=== PATIENT | female | born 1950 | race Caucasian/White ===

== ENCOUNTER 2018-04-20 19:05 | Inpatient (IN) | payer MEDICARE ==
[~2018-04-20 19:05] MED LIST: ISOVUE-370 76%-LOCM 1 ML ONE
[2018-04-20] MEDS ORDERED: Ondansetron HCl/PF 4 MG/2 ML Vial ONE (20:00)
[2018-04-20 20:08] LABS: Troponin I 0.027 ng/mL (< 0.028)
--- NOTE | 2018-04-20 21:28 | CT ---
CT ANGIOGRAM OF THE CHEST 04/20/18 HISTORY: Elevated troponin. Headache, Vision changes. Congestive heart failure. Lung problems. Patient requires oxygen. COMPARISON: None. TECHNIQUE: CT angiogram of the chest is performed in the axial plane. Three dimensional reformatted images are s ubmitted for interpretation. FINDINGS: Nonspecific, nonenlarged mediastinal lymph nodes. Small amount of pericardial fluid. Heart is enlarge d. The thoracic aorta and upper abdominal aorta have an overall normal caliber. No periaortic fat str anding. The visualized upper solid organs do not demonstrate an acute abnormality. There is evidence of hepatosplenomegaly. Surgically absent gallbladder. Visualized pancreas and kidneys are unremarkabl e. There is nonspecific nodularity involving the left adrenal gland, measuring 2.2 cm. Patchy ground glass opacities throughout the lung parenchyma, presumed to be due to edema. No consoli dation. No masses. No pleural effusion or pneumothorax. Trachea and central bronchi are patent. There are no lytic or blastic lesions in the osseous structures. The left and right main pulmonary ar teries are prominent. Correlate for pulmonary arterial hypertension. There is no evidence of a fillin g defect to suggest thromboembolism. IMPRESSION: 1. No evidence of pulmonary artery embolism to level of the segmental arteries. 2. Enlarged pulmonary arteries. Correlate for pulmonary hypertension. 3. Hepatosplenomegaly. 4. Fullness and nodularity of the left adrenal gland, incompletely evaluated. POS: [facility]
--- NOTE | 2018-04-20 21:35 | CT ---
ABDOMEN CT WITH CONTRAST PELVIC CT WITH CONTRAST 04/20/18 HISTORY: Previous kidney injury. Pain. COMPARISON: None. FINDINGS: ABDOMEN CT: Enlarged cardiac silhouette. Ground glass opacities in the lung parenchyma. Refer to separate CT billy ogram report for further detail. There is hepatosplenomegaly. No abnormal enhancement of the spleen, liver, pancreas, right adrenal gl and. There is nodularity involving the left adrenal gland, incompletely evaluated. Gallbladder is surgically absent. Hypodensities in the left and right renal cortex cannot be further assessed. Bilaterally, no obstruct erick uropathy. No gastrohepatic, retrocrural or periportal lymphadenopathy. No mesenteric mass, lymphadenopathy, free air or free fluid. Limited evaluation of the alimentary canal due to lack of oral contrast. Gastric mucosa, duodenum, an d small bowel loops are grossly unremarkable. Ileocecal junction is normal. Normal caliber appendix. Scattered fecal material in a nondistended, nondilated colon. There is evidence of diverticulosis. No evidence of diverticulitis. Limited evaluation of the sigmoid colon due to inadequate distention. PELVIC CT: No mass, lymphadenopathy, free air or free fluid. Unremarkable urinary bladder. Previous hysterectomy is noted. No lytic or blastic lesions of the osseous structures. There is mild bone demineralization. Remote Sc hmorl's nodes are noted. Vacuum disc phenomenon is identified. Injection granulomas in the left and right gluteal subcutaneous fat is present. IMPRESSION: 1. Hepatosplenomegaly. 2. Incompletely evaluated nodularity of left adrenal gland. Consider abdomen MRI or adrenal mass protocol CT. 3. No evidence of obstructive uropathy. Subcentimeter hypodensities in the kidneys, too small to characterize. 4. Normal caliber appendix. 5. Diverticulosis, without evidence of diverticulitis. POS: [facility]
[2018-04-20] MEDS ORDERED: Famotidine 20 MG TAB ONE (21:50)
[2018-04-20] MEDS ORDERED: Acetaminophen 325 MG TAB PO PRN (23:01)
[2018-04-20] MEDS ORDERED: Ondansetron ODT 4 MG TAB SL PRN (23:01)
[2018-04-20] MEDS ORDERED: Sodium Chloride 0.9% 1,000 ML IV SCH (23:01)
[2018-04-20] MEDS ORDERED: Ondansetron HCl/PF 4 MG/2 ML Vial IVP PRN (23:01)
[2018-04-20 23:48] LABS: Troponin I 0.032 ng/mL (< 0.028)
[2018-04-21 01:03] VITALS: BMI 33.5
[2018-04-21] MEDS ORDERED: cloNIDine 0.1 MG TAB PO PRN (07:22)
[2018-04-21] MEDS ORDERED: Zolpidem Tartrate 5 MG TAB PO PRN ×2 (07:22→07:42)
[2018-04-21] MEDS ORDERED: traMADol HCl 50 MG TAB PO PRN (07:22)
[2018-04-21] MEDS ORDERED: Hydroxyurea 500 MG CAP PO SCH (07:30)
[2018-04-21] MEDS ORDERED: Ondansetron ODT 4 MG TAB PO PRN (07:42)
[2018-04-21] MEDS ORDERED: Acetaminophen 325 MG TAB PO PRN (07:42)
--- NOTE | 2018-04-21 08:02 | HP ---
[facility] call admission for Rebeka, referred by the [place] [facility] after transfer from the [facility] Emergency Room. HISTORY OF PRESENT ILLNESS: Patient states right off the bat she needs all new doctors. She has bee n going to [facility], has a doctor in [place] and she wishes to transfer all of her care to [facility]. After telling her I needed symptoms, she said she has been dizzy, lightheaded, headache, gener alized weakness, feels bad, sweats in the daytime. She gave no cardiorespiratory complaints during h er interview for her present illness. PAST MEDICAL HISTORY: Polycythemia rubra vera; restless legs syndrome; lung problems, she could not be more specific; hypertension; thyroid problem; heart failure. She uses O2 at night. CURRENT MEDICATIONS: Requip 4 mg in the evening, Lasix 80 mg a day, hydroxyurea 1000 mg as directed, Cymbalta 120 mg a day, levothyroxine 125 mcg a day, Norvasc 10 mg a day, colestipol 2 grams b.i.d., prednisone 5 mg a day, Ambien 5 mg at bedtime p.r.n., tramadol 25 mg p.o. q.6 hours p.r.n., clonidine 0.1 mg p.o. t.i.d. p.r.n., gabapentin 1200 mg p.o. t.i.d., potassium chloride 10 mEq p.o. b.i.d. ALLERGIES: No medical allergies. PAST SURGICAL HISTORY: Cholecystectomy 2 years ago, total knee replacement x2 on the left. She stat es she has had a stent in her head that was put in there when she was first diagnosed with polycythem ia. FAMILY HISTORY: Mother and father had hypertension. SOCIAL HISTORY: . FULL CODE status. surrogate decision maker. No tobacco, no alcoh ol. REVIEW OF SYSTEMS: General: When asked about chills, she said she was cold this morning. No fainti ng. Yesterday, she had transient double vision. Otherwise, no flashing lights or blurred vision. E ars, Nose, and Throat: No ear pain or drainage. No nasal bleeding. No trouble swallowing. Cardiac : No chest pain, orthopnea, or paroxysmal nocturnal dyspnea. Respirations: Dyspnea on exertion at 20 feet, uses oxygen at night. No cough, no wheezing. Gastrointestinal: No nausea, vomiting, diarr hea, constipation, or abdominal pain. Genitourinary: No hematuria, dysuria, or nocturia. Musculosk eletal: She says her legs ache at night. No swelling in her legs. Neurological: She says she has TIAs in 2001. That is what the stent was put in for. Psychiatric: She denies depression, but admit s she is taking Cymbalta, an antidepressant medicine. Skin: No bruising, bleeding, or rash. Heme/L ymph: No tender or swollen lymph nodes in axilla, inguinal, or cervical area. PHYSICAL EXAMINATION: VITAL SIGNS: In the emergency room, her O2 sat was 87. She has been on nasal cannula since. Curren t O2 sat is 93 on 2.5 liters of O2. Blood pressure 151/65, pulse 60, respirations 21, temperature 97 .4. GENERAL: Patient is alert, oriented, cooperative, but really a fairly poor historian. HEENT: Examination of her head, eyes, ears, nose, and throat reveal pupils equal, round, and reactiv e. Extraocular movements are intact. Sclerae white. Tympanic membranes clear. Nose clear. Oral m ucous membranes are wet. Dental hygiene is good. NECK: Supple, without jugular venous distention, adenopathy, or thyromegaly. CHEST: Clear to percussion. She had some coarse breath sounds. She had fine rales in the lower lob es posteriorly. HEART: Regular rate and rhythm, 3/6 crescendo-decrescendo murmur anteriorly, second heart sound was accentuated. ABDOMEN: Soft, bowel sounds are normal. There is no hepatosplenomegaly, no masses, no rebound. EXTREMITIES: Reveal no cyanosis, clubbing, or edema. PULSES: Carotid, radial, femoral, and dorsalis pedis pulses intact. SKIN: Warm and dry without bruises or rash. HEME/LYMPH: Reveals no tender or swollen lymph nodes. No petechial rash. NEUROLOGICAL: Cranial nerves II-XII are intact. Moves all extremities. Sensation decreased in the feet. LABORATORY AND X-RAY FINDINGS: Laboratory was done in [place] initially. CBC: White count 9.3 , hemoglobin 13.7, and platelet count 573,000. She had an absolute neutrophilia. D-dimer was 1.03. Comp metabolic profile was normal except for a glucose of 78 and BUN of 22. TSH was normal at 1.48. Troponin 0.036, 0.027, 0.032. BNP 540.7. Chest x-ray: Borderline cardiomegaly, pulmonary vascula r congestion, reviewed by me. CT of the thorax suggests pulmonary hypertension, because of enlarged pulmonary arteries. CT of the abdomen and pelvis showed hepatosplenomegaly. EKG: Regular sinus rhy thm, left axis deviation, nonspecific T-wave abnormality, reviewed by me. ADMITTING DIAGNOSES: Acute hypoxic respiratory failure; congestive heart failure, unspecified; cardi ac murmur; suspect aortic stenosis; suspect pulmonary hypertension; polycythemia vera; hypothyroidism ; hypertension; restless legs syndrome. PLAN: 1. IV Lasix. 2. O2 to keep sat 90 or better. 3. Echocardiogram. 4. Selected home medicines. 5. Reevaluate when data available. 6. Repeat CBC and basic metabolic profile in the morning.
[2018-04-21] MEDS ORDERED: Prevnar 13-Val Conj/PF 0.5 ML SYRINGE IM ONE (09:00)
[2018-04-21] MEDS ORDERED: Aspirin 325 MG TAB PO SCH (09:00)
[2018-04-21] MEDS ORDERED: Gabapentin 400 MG CAP PO SCH (09:00)
[2018-04-21] MEDS: Levothyroxine Sodium 125 MCG TAB PO SCH (09:21)
[2018-04-21] MEDS: DULoxetine 60 MG CAP PO SCH (09:21)
[2018-04-21] MEDS: Hydroxyurea 500 MG CAP PO SCH (09:21)
[2018-04-21] MEDS: Aspirin 325 MG TAB PO SCH (09:22)
[2018-04-21] MEDS: Amlodipine 10 MG TAB PO SCH (09:22)
[2018-04-21] MEDS: predniSONE 5 MG TAB PO SCH (09:22)
[2018-04-21] MEDS: Potassium Chloride 10 MEQ TAB PO SCH ×2 (09:22→20:42)
[2018-04-21] MEDS: Enoxaparin Sodium 40 MG/0.4 ML SYRINGE SC SCH (09:23)
[2018-04-21] MEDS: Furosemide 20 MG/2 ML VIAL SLOW IVP SCH (13:27)
[2018-04-21] MEDS ORDERED: ISOVUE-370 76%-LOCM 1 ML ONE (15:04)
--- NOTE | 2018-04-21 16:41 | PDOC.EVN ---
Event Note - Event Note Event Note: patient and insisting on multiple consultations- cardiology, hematology, etc. now CO abd pain, . quite hostile, she states she does not remeber my visit this AM
[2018-04-21 17:23] LABS: #Eosinphils 0.1 thou/uL (0.0-0.7); #Lymphocytes 0.6 thou/uL (1.20-3.40); #Monocytes 0.1 thou/uL (0.11-0.59); #Neutrophils 7.6 thou/uL (1.40-6.50); %Basophils 0.2 % (0.0-1.0); %Eosinophils 0.8 % (0.0-10.0); %Lymphocytes 7.5 % (21.0-51.0); %Monocytes 1.2 % (0.0-10.0); %Neutrophils 90.4 % (42.0-75.0); Hemoglobin 13.1 g/dL (12.0-16.0); Mean Corpuscular HGB CONC 31.3 g/dL (32.0-36.0); Mean Corpuscular Hemoglobin 30.7 pg (27.0-31.0); Mean Corpuscular Volume 98.3 fL (78.0-98.0); Mean Platelet Volume 8.1 fL (7.4-10.4); Platelet Count 549 thou/uL (130-400); RBC Distribution Width 18.3 % (11.5-14.5); Red Blood Cell (RBC) Count 4.26 mill/uL (4.20-5.40); White Blood Cell (WBC) Count 8.4 thou/uL (4.8-10.8)
[2018-04-21 18:07] LABS: Anion Gap 11 mmol/L (10-20); BUN (Urea Nitrogen) 28 mg/dL (9.8-20.1); Calc. Creatinine Clearance 74 mL/min (70-130); Calcium 8.4 mg/dL (7.8-10.44); Carbon Dioxide 30 mmol/L (23-31); Chloride 101 mmol/L (98-107); Estimated GFR-MDRD 46; Glucose 94 mg/dL (80-115); Lipase 35 U/L (8-78); Potassium 5.2 mmol/L (3.5-5.1); Sodium 137 mmol/L (136-145)
--- NOTE | 2018-04-21 20:06 | CT ---
CT ABDOMEN AND PELVIS WITH CONTRAST 04/21/18 HISTORY: Abdominal pain. COMPARISON: CT abdomen and pelvis prior day. FINDINGS: Lung bases have some mosaic attenuation which may be sequela of air trapping. No pericardial effusion . The spleen is markedly enlarged, similar to the comparison examination. No new acute inflammatory pro cess in the abdomen or pelvis compared to the prior examination. The left adrenal nodularity is similar. There is calculus of the interpolar kidney measuring approxim ately 3 mm. Moderate diverticular disease. Laminectomy changes lower lumbar spine. IMPRESSION: Unchanged examination in the abdomen and pelvis. No acute inflammatory process. POS: [facility]
[2018-04-21] MEDS: rOPINIRole HCl 2 MG TAB PO SCH (20:41)
[2018-04-21] MEDS: Gabapentin 400 MG CAP PO SCH (20:41)
[2018-04-21] MEDS ORDERED: ROPINIROLE HCL 4 MG PO SCH (21:00)
[2018-04-22 05:45] LABS: #Eosinphils 0.1 thou/uL (0.0-0.7); #Lymphocytes 0.7 thou/uL (1.20-3.40); #Monocytes 0.2 thou/uL (0.11-0.59); #Neutrophils 7.2 thou/uL (1.40-6.50); %Basophils 0.5 % (0.0-1.0); %Eosinophils 1.1 % (0.0-10.0); %Lymphocytes 8.5 % (21.0-51.0); %Monocytes 2.9 % (0.0-10.0); %Neutrophils 87.1 % (42.0-75.0); Hemoglobin 12.9 g/dL (12.0-16.0); Mean Corpuscular HGB CONC 31.1 g/dL (32.0-36.0); Mean Corpuscular Hemoglobin 30.4 pg (27.0-31.0); Mean Corpuscular Volume 97.8 fL (78.0-98.0); Mean Platelet Volume 7.9 fL (7.4-10.4); Platelet Count 513 thou/uL (130-400); RBC Distribution Width 18.2 % (11.5-14.5); Red Blood Cell (RBC) Count 4.25 mill/uL (4.20-5.40); White Blood Cell (WBC) Count 8.3 thou/uL (4.8-10.8)
[2018-04-22 05:56] LABS: Anion Gap 11 mmol/L (10-20); BUN (Urea Nitrogen) 29 mg/dL (9.8-20.1); Calc. Creatinine Clearance 86 mL/min (70-130); Calcium 8.4 mg/dL (7.8-10.44); Carbon Dioxide 27 mmol/L (23-31); Chloride 103 mmol/L (98-107); Estimated GFR-MDRD 55; Glucose 109 mg/dL (80-115); Potassium 4.7 mmol/L (3.5-5.1); Sodium 136 mmol/L (136-145)
[2018-04-22] MEDS: Furosemide 20 MG/2 ML VIAL SLOW IVP SCH ×2 (06:02→14:58)
--- NOTE | 2018-04-22 09:20 | PDOC.PN ---
- Subjective Encounter Start Date: 04/22/18 Encounter Start Time: 09:17 Patient reports she is feeling better in her head and has a more positive outlook than she did when she arrived. Breathing a little better. Reports that she had presented with epigastric abd pain. Has had it intermittently for a couple of years since her cholecystectomy. Had diarrhea soon after the surgery, but now trends towards constipation. She is on prednisone daily for sarcoidosis and has not been routinely on PPI. - Objective Resuscitation Status: Resuscitation Status FULL:Full Resuscitation Vital Signs & Weight: Vital Signs (12 hours) Temp Pulse Resp BP Pulse Ox 04/22/18 08:00 98.1 F 56 L 13 95 04/22/18 04:00 98.1 F 56 L 13 145/65 H 95 04/22/18 00:00 97.7 F 61 24 H 166/70 H 91 L 04/21/18 23:54 97.7 F 61 24 H 166/70 H Weight Admit Weight 220 lb 6.4 oz Weight 225 lb 14.4 oz I&O: 04/21/18 04/22/18 04/23/18 06:59 06:59 06:59 Intake Total 2002 Output Total 1700 Balance 303 Result Diagrams: 04/22/18 05:27 04/22/18 05:27 Phys Exam - Physical Examination Constitutional: NAD NC oxygen HEENT: oral pharynx no lesions Neck: no JVD, supple Squeaky rales right base - mild. Cardiovascular: RRR Slight Mumur LUSB. Gastrointestinal: soft, no distention Still has some TTP in epigastrium. Musculoskeletal: no edema Psychiatric: normal affect Dx/Plan (1) Abdominal pain Code(s): R10.9 - UNSPECIFIED ABDOMINAL PAIN Status: Acute Comment: Sounds like gastritis from steroids. Continue PPI, carafate for now. (2) Sarcoidosis Code(s): D86.9 - SARCOIDOSIS, UNSPECIFIED Status: Acute Comment: Chronic. Oxygen use at night at home. Has initial respiratory issues. Consult pulmonology. (3) Abnormal finding on imaging Code(s): R93.8 - ABNORMAL FINDINGS ON DIAGNOSTIC IMAGING OF BODY STRUCTURES Status: Acute Comment: Adrenal finding. Will need follow up imaging. (4) Elevated troponin Code(s): R74.8 - ABNORMAL LEVELS OF OTHER SERUM ENZYMES Status: Acute Comment: Has some failure symptoms. May be demand ischemia. Epigastric symtpoms make it difficult to assess. Echo pending. Consult cardiology. (5) Polycythemia rubra vera Code(s): D45 - POLYCYTHEMIA VERA Status: Acute Comment: Chronic. Has thrombocytopenia and hepatosplenomegaly. - Plan * Questionable pulmonary hypertension. Echo pending. May be related to sarcoidosis.
[2018-04-22] MEDS: Amlodipine 10 MG TAB PO SCH (09:43)
[2018-04-22] MEDS: Potassium Chloride 10 MEQ TAB PO SCH ×2 (09:43→20:37)
[2018-04-22] MEDS: Aspirin 325 MG TAB PO SCH (09:43)
[2018-04-22] MEDS: Hydroxyurea 500 MG CAP PO SCH (09:43)
[2018-04-22] MEDS: DULoxetine 60 MG CAP PO SCH (09:43)
[2018-04-22] MEDS: Enoxaparin Sodium 40 MG/0.4 ML SYRINGE SC SCH (09:44)
[2018-04-22] MEDS: Levothyroxine Sodium 125 MCG TAB PO SCH (09:44)
[2018-04-22] MEDS: predniSONE 5 MG TAB PO SCH (09:44)
[2018-04-22] MEDS: Sucralfate 1 GM TAB PO SCH ×3 (12:12→20:37)
[2018-04-22] MEDS: rOPINIRole HCl 2 MG TAB PO SCH (20:37)
[2018-04-22] MEDS: Gabapentin 400 MG CAP PO SCH (20:37)
--- NOTE | 2018-04-22 21:32 | CON ---
DATE OF CONSULTATION: 04/22/2018 HISTORY OF PRESENT ILLNESS: Susie Carrasco is a 67-year-old white female who has previously sought most of her Health Care at [facility] in [place]. In talking to her regarding the exact reason why she came to the hospital, it is unclear. She apparently felt weak and somewhat short of breath. She also had some epigastric pain, but denies any chest discomfort. She does give a history of heart failure in the past and apparently has been on home oxygen. She has a borderline troponin I and Cardiology consultation was requested. She also has a heart murmur. PAST MEDICAL HISTORY: History of restless leg syndrome, polycythemia, rubra vera, hypertension, hypothyroidism, and heart failure. MEDICATIONS AT HOME: Include amlodipine 10 mg daily, clonidine 0.1 mg t.i.d. p.r.n., colestipol 2 grams b.i.d., Cymbalta 120 daily, furosemide 80 daily, gabapentin 1200 t.i.d. Hydrea 1000 mg as directed, levothyroxine 125 mcg daily, KCl 10 mEq b.i.d., prednisone 5 mg daily, Requip 4 mg q.p.m., tramadol p.r.n., Ambien 5 mg p.r.n. ALLERGIES: LATEX. OPERATIONS: Cholecystectomy, left total knee replacement x2. SOCIAL HISTORY: She does not smoke or drink. PHYSICAL EXAMINATION: VITAL SIGNS: 165/71, pulse of 54. HEENT: PERRL. NECK: Supple. LUNGS: Chest reveals rare crackles at the bases. CARDIAC: S1, S2 were normal, without any S3 or S4. There is a 2/6 systolic ejection murmur in the aortic area and along the left sternal border. Carotid upstrokes are normal without bruits. ABDOMEN: Normal bowel sounds. EXTREMITIES: Revealed no clubbing, cyanosis or edema. NEUROLOGIC: Grossly intact. LABORATORY AND X-RAY FINDINGS: EKG revealed normal sinus rhythm with left anterior fascicular block. Echocardiogram revealed normal left ventricular function with ejection fraction of 50%-55%, moderate left atrial enlargement, mild mitral regurgitation, aortic valvular sclerosis and mild to moderate tricuspid regurgitation. A chest CTA revealed no evidence of pulmonary artery embolism. The pulmonary arteries were enlarged with hepatosplenomegaly. Sodium 136, potassium 4.7, chloride 103, carbon dioxide 27, BUN 29, creatinine 1.01. BNP 793.4, troponin I is up to 0.032. TSH is normal. Hemoglobin 12.9, hematocrit 41.5, white count 8300, platelets 513,000. IMPRESSION: 1. Increased shortness of breath and weakness of uncertain etiology. 2. Epigastric discomfort. 3. Borderline cardiac enzymes. 4. Aortic sclerosis. 5. Hypoxic respiratory failure. 6. Probable diastolic heart failure. 7. Polycythemia rubra vera. 8. Hypothyroidism. 9. Hypertension. 10. Restless leg syndrome. PLAN: With borderline troponin I's, she will undergo Lexiscan Cardiolite testing to further evaluate for ischemia. FERNANDO
[2018-04-23] MEDS: Furosemide 20 MG/2 ML VIAL SLOW IVP SCH ×2 (06:09→13:57)
[2018-04-23] MEDS: Amlodipine 10 MG TAB PO SCH (08:19)
[2018-04-23] MEDS: Levothyroxine Sodium 125 MCG TAB PO SCH (08:19)
[2018-04-23] MEDS ORDERED: Regadenoson 0.4 MG/5 ML SYRINGE ONE (11:14)
[2018-04-23] MEDS: Sucralfate 1 GM TAB PO SCH ×3 (12:52→17:55)
[2018-04-23] MEDS: Enoxaparin Sodium 40 MG/0.4 ML SYRINGE SC SCH (13:04)
[2018-04-23] MEDS: DULoxetine 60 MG CAP PO SCH (13:05)
[2018-04-23] MEDS: Aspirin 325 MG TAB PO SCH (13:05)
[2018-04-23] MEDS: predniSONE 5 MG TAB PO SCH (13:06)
[2018-04-23] MEDS: Hydroxyurea 500 MG CAP PO SCH (13:06)
[2018-04-23] MEDS: Potassium Chloride 10 MEQ TAB PO SCH (13:06)
--- NOTE | 2018-04-23 13:53 | NM ---
NUCLEAR MEDICINE STRESS STUDY WITH EF AND WALL MOTION: History: Chest pain. Comparison: None. Technique: Patient was administered 27 mCi Technetium 99M Sestamibi. FINDINGS: Homogeneous distribution of the radiotracer in the left ventricle on attenuation as well as non-atten uated images. End diastolic volume is 197 ml. End systolic volume is 65 ml. GATED: Normal motion and wall thickening. 67% ejection fraction. IMPRESSION: 1. No defect. Homogenous radiotracer distribution. 2. 67% ejection fraction. POS: [facility]
[2018-04-23 15:37] VITALS: BP 150/67; TEMP 98.5
--- NOTE | 2018-04-24 00:47 | CON ---
DATE OF CONSULTATION: 04/23/2018 HISTORY OF PRESENT ILLNESS: Susie Carrasco is a 67-year-old female, lifelong nonsmoker. She is 99 kilos. She presented to the hospital on 04/20/2018 with a diagnosis of congestive heart failure, fluid in th e lung, elevated troponin. She says that she has recently moved from [place] 2 years. 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 She sees for a period of time. She had elevated troponin and D-dimer. Her CT chest showed extensive ground glass opacity bilaterall y. She had no fever or chills. She walk a block without getting markedly dyspneic. No previous his tory of pneumonia, no TB, asthma somewhere down the line, a diagnosis of sarcoidosis was made. She w as taking prednisone for at least a year and a half, a gambreler helper is seen her on three-monthly bas is. PAST MEDICAL HISTORY: Polycythemia rubra vera, hypertension, CHF, presumed sarcoidosis confirm ed this, history of previous TIA, history of hypothyroidism, history of renal failure. PAST SURGICAL HISTORY: Left knee surgery, back surgery, hysterectomy, and gallbladder surgery. CHRONIC MEDICATION AT HOME: Includes: 1. Breo 100 one puff a day. 2. Tramadol 25. 3. Requip 4. 4. Prednisone 5. 5. Catapres 0.1. 6. Ambien 5. 7. Potassium. 8. Levoxyl 125. 9. Hydrea 1000. 10. Gabapentin 1200. 11. Lasix 80. 12. Cymbalta 120. 13. Atorvastatin. ALLERGIES: LATEX. SOCIAL HISTORY: No alcohol or tobacco abuse. She used to work in the [employer] business, [employer]. REVIEW OF SYSTEMS: Ten-point negative. PHYSICAL EXAMINATION: VITAL SIGNS: Sats are 97%, respirations 20, blood pressure 180/70, temperature 98. CHEST: Extensive rhonchi and crackles bilaterally. CARDIOVASCULAR: Normal S1, S2, no gallops. ABDOMEN: Soft, without mass. LABORATORY DATA: Shows otherwise white count 8000, H&H 8 and 24, platelet count 513. Electrolytes a re normal. Kidney function is normal. GFR is 55. Troponin is elevated at 793. Echo results showed normal EF. Stress test was unremarkable without any fixed defect. IMPRESSION: 1. Elevated BNP. Normal ejection fraction 55, moderate tracheal regurgitation, probably diastolic d ysfunction. 2. CT showing ground glass opacity, probably fluid overload. 3. Underlying baseline chronic lung disease. 4. Polycythemia rubra vera. 5. Nonsmoker. 6. Obesity. PLAN: A full PFT was ordered for next week. She is to call the office in 2 weeks. We will reassess at that time. She is to stick with Breo as prescribed. I am going to see in the office. I recomme nd further treatment once I review all the records from [place]. This is a consultation note, 70 minutes, 50% in direct patient care.
[2018-04-24] MEDS ORDERED: Levothyroxine Sodium 125 MCG TAB PO SCH (06:00)
[2018-04-24] MEDS ORDERED: Hydroxyurea 500 MG CAP PO SCH (09:00)
--- NOTE | 2018-04-24 11:29 | EKG ---
Test Reason : Blood Pressure : / mmHG Vent. Rate : 057 BPM Atrial Rate : 057 BPM P-R Int : 160 ms QRS Dur : 090 ms QT Int : 458 ms P-R-T Axes : 054 -49 030 degrees QTc Int : 445 ms Sinus bradycardia with sinus arrhythmia Left anterior fascicular block Abnormal ECG Confirmed by ROMEL MORALES DO ([id number]), design editor VERN MENDOZA ([id number]) on 04/24/2018 11:29:35 AM Referred By: Confirmed By:ROMEL MORALES DO
--- NOTE | 2018-04-24 11:37 | EKG ---
Test Reason : Blood Pressure : / mmHG Vent. Rate : 055 BPM Atrial Rate : 055 BPM P-R Int : 000 ms QRS Dur : 092 ms QT Int : 470 ms P-R-T Axes : 028 -48 031 degrees QTc Int : 449 ms Undetermined rhythm Pulmonary disease pattern Left anterior fascicular block Abnormal ECG Confirmed by ROMEL MORALES DO ([id number]), offline editor VERN MENDOZA ([id number]) on 04/24/2018 11:36:37 AM Referred By: Confirmed By:ROMEL MORALES DO
--- NOTE | 2018-04-29 14:49 | PQF ---
[employer] Host/Hostess Crystal Reports Winform KENYA Miller KARISHMA [id number] [facility]-282 [id number] CLINICAL DOCUMENTATION CLARIFICATION FORM: POST DISCHARGE Addendum to original discharge summary date: ____ Late entry note date: __ DATE: ATTN: Please exercise your independent, professional judgment in responding to the clarification form. Clinical indicators are provided on the bottom of this form for your review Please check appropriate box(s): HEART FAILURE: A. TYPE: [ ] Systolic / HFrEF [ ] Diastolic / HFpEF [ ] Combined Systolic / Diastolic B. ACUITY [ ] Acute [ ] Acute on Chronic [ ] Chronic [ ] Other diagnosis [ ] Unable to determine In addition, please specify: Present on Admission (POA): [ ] Yes [ ] No [ ] Unable to determine IV Lasix administered Noted history of CHF Elevated BNP at 793.4 with reported diastolic dysfunction Probable diastolic failure All noted in Robbie Consult 04/23 (This form is maintained as a part of the permanent medical record) 2014 [employer], [employer]. All Rights Reserved [email or web address] [phone] FERNANDO
== END 2018-04-23 18:01 | disposition home or self-care (01) | DRG 189 ==
LOC: ERS 19:05 → 2NO 21:39
PROVIDERS: ADMIT Internal Medicine; ATTEND Internal Medicine
DX: J96.01 Acute respiratory failure with hypoxia (principal); I50.30 Unspecified diastolic (congestive) heart failure; J44.1 Chronic obstructive pulmonary disease with (acute) exacerbation; I11.0 Hypertensive heart disease with heart failure; I27.20 Pulmonary hypertension, unspecified; D86.9 Sarcoidosis, unspecified; D45 Polycythemia vera; E66.9 Obesity, unspecified; Z68.34 Body mass index [BMI] 34.0-34.9, adult; E03.9 Hypothyroidism, unspecified; G25.81 Restless legs syndrome; I70.0 Atherosclerosis of aorta
CPT/HCPCS: 36415; 71275; 74177; 78452; 80048; 83690; 83880; 85025; 90471; 90670; 93005; 93017; 93306; 93798; 96374; 96375; A4216; A9500; G0009; J1650; J1940; J2270; J2405; J2785

== ENCOUNTER 2018-04-28 13:34 | Outpatient (CLI) | payer MEDICARE | END 2018-04-28 13:35 | disposition home or self-care (01) | LOC: CP 13:34 | PROVIDERS: ATTEND Internal Medicine Pulmonary Disease | DX: J44.9 Chronic obstructive pulmonary disease, unspecified (principal) | CPT/HCPCS: 94060; 94727; 94729 ==

== ENCOUNTER 2018-06-25 07:08 | Emergency (ER) | payer MEDICARE ==
--- NOTE | 2018-06-25 08:31 | RAD ---
THREE VIEWS LEFT FOOT: COMPARISON: None. HISTORY: Left great toe pain for the last 2 weeks. FINDINGS: Three views left foot show no evidence of acute fracture or dislocation. No degenerative changes are seen. No soft tissue swelling is present. IMPRESSION: Unremarkable exam. POS: [facility]
[2018-06-25] MEDS ORDERED: Ketorolac Tromethamine 30 MG/ML VIAL ONE (09:06)
== END 2018-06-25 08:33 | disposition home or self-care (01) ==
LOC: ERS 07:08
DX: M10.9 Gout, unspecified (principal); I25.2 Old myocardial infarction; E03.9 Hypothyroidism, unspecified; I11.0 Hypertensive heart disease with heart failure; I50.9 Heart failure, unspecified; Z86.711 Personal history of pulmonary embolism; Z86.73 Personal history of transient ischemic attack (TIA), and cerebral infarction without residual deficits; Z79.899 Other long term (current) drug therapy; Z79.82 Long term (current) use of aspirin
CPT/HCPCS: 96372; J1885

== ENCOUNTER 2018-07-20 19:30 | Outpatient (CLI) | payer MEDICARE | END 2018-07-20 19:31 | disposition home or self-care (01) | LOC: SLEEPLAB 19:30 | PROVIDERS: ATTEND Internal Medicine Pulmonary Disease | DX: G47.33 Obstructive sleep apnea (adult) (pediatric) (principal); R53.83 Other fatigue; R06.83 Snoring; G47.00 Insomnia, unspecified; G47.10 Hypersomnia, unspecified; D75.1 Secondary polycythemia; R09.02 Hypoxemia; I51.89 Other ill-defined heart diseases; E66.9 Obesity, unspecified; Z68.33 Body mass index [BMI] 33.0-33.9, adult | CPT/HCPCS: 95811 ==

== ENCOUNTER 2018-09-02 13:43 | Emergency (ER) | payer MEDICARE ==
[~2018-09-02 13:43] MED LIST changes: -ISOVUE-370 76%-LOCM 1 ML ONE; +Iopamidol 370 76% 100 ML VIAL ONE
[2018-09-02 14:30] LABS: Mean Corpuscular HGB CONC 30.2 g/dL (32.0-36.0); Mean Corpuscular Hemoglobin 29.3 pg (27.0-31.0); Mean Platelet Volume 8.7 fL (7.4-10.4); Platelet Count 689 thou/uL (130-400); RBC Distribution Width 18.2 % (11.5-14.5); Red Blood Cell (RBC) Count 5.13 mill/uL (4.20-5.40); White Blood Cell (WBC) Count 8.9 thou/uL (4.8-10.8)
[2018-09-02 14:39] LABS: ALT (SGPT) 10 U/L (8-55); AST (SGOT) 23 U/L (5-34); Alkaline Phosphatase 71 U/L (40-150); Anion Gap 13 mmol/L (10-20); BUN (Urea Nitrogen) 34 mg/dL (9.8-20.1); Bilirubin, Total 0.7 mg/dL (0.2-1.2); Calc. Creatinine Clearance 0 mL/min (70-130); Calcium 9.1 mg/dL (7.8-10.44); Carbon Dioxide 28 mmol/L (23-31); Chloride 105 mmol/L (98-107); Estimated GFR-MDRD 52; Globulin 3.5 g/dL (2.4-3.5); Glucose 119 mg/dL (80-115); Potassium 4.5 mmol/L (3.5-5.1); Protein, Total 7.5 g/dL (6.0-8.3); Sodium 141 mmol/L (136-145)
[2018-09-02 14:50] LABS: Anisocytosis SLIGHT = 6-15 cells (100X) (0-5/hpf); Band 2 % (5-11); Eosinophils 1 % (0-10); Lymphocytes 2 % (21-51); MDiff Complete? YES; Monocytes 2 % (0-10); Neutrophil 93 % (42-75); PLT Morphology Comment Appears Increased
[2018-09-02] MEDS ORDERED: Metoclopramide HCl 10 MG/2 ML VIAL ONE (15:02)
[2018-09-02] MEDS ORDERED: diphenhydrAMINE 50 MG/ML VIAL ONE (15:02)
[2018-09-02] MEDS ORDERED: Acetaminophen 500 MG TAB ONE (15:02)
--- NOTE | 2018-09-02 15:22 | RAD ---
PORTABLE AP CHEST: Date: 09/02/18 HISTORY: Dyspnea, nausea, and headache. COMPARISON: 04/20/18. FINDINGS: Cardiac silhouette is magnified by projection, but does appear mildly enlarged and stable from prior study. Again noted is prominence of the central pulmonary artery segment suggesting element of pulmon paige artery hypertension. No focal consolidation or pleural fluid is seen. Vascular calcifications see n in thoracic aorta. Stable degenerative changes noted of the spine. No other interval change. IMPRESSION: 1. No acute cardiopulmonary process. 2. Findings suggesting element of pulmonary artery hypertension. 3. Mild cardiomegaly without CHF. POS: [facility]
[2018-09-02] MEDS ORDERED: Ketorolac Tromethamine 30 MG/ML VIAL ONE (16:25)
--- NOTE | 2018-09-02 16:34 | CT ---
NONCONTRAST CT HEAD CT ANGIOGRAM HEAD WITH IV CONTRAST AND 3D RECONSTRUCTIONS: DATE: 09/02/2018. HISTORY: Headache, nausea, and chest pain. COMPARISON: None available. FINDINGS: NONCONTRAST CT HEAD: There is evidence of a stent in the M1 segment of the right middle cerebral artery. There is no evid ence of an acute cortical infarction, hemorrhage, mass, effect, or midline shift. Low-density area i s seen in the region of the caudate nucleus, this is thought to be related to volume averaging with t he anterior horn of the lateral ventricle. Mild cerebral volume loss is present. Visualized paranas al sinuses and mastoid air cells are clear. Calvarial structures are intact. IMPRESSION: No acute intracranial abnormalities demonstrated. CT ANGIOGRAM HEAD WITH IV CONTRAST AND 3D RECONSTRUCTIONS: As noted on the noncontrasted CT scan examination, there is a right middle cerebral artery stent in p lace. However, there is occlusion of the stent with a question of only a tiny enhancement of a very small vessel in the right MCA distribution, but in general there is no significant enhancement within the right middle cerebral arterial vessels. The left middle cerebral artery as well as bilateral an terior cerebral arteries and posterior cerebral arteries are patent. The distal bilateral vertebral arteries, basilar artery, and posterior cerebral arteries are patent. There is a -type origin o f the right posterior cerebral artery. No aneurysm is seen within the limitations of the technique of this examination. IMPRESSION: 1. 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 As noted above, there is no obvious acute infarction in the right middle cerebral artery distributi on. 2. There is otherwise no focal stenosis or branch occlusion involving the remainder of the [place] or vertebrobasilar system. 3. The above findings were discussed with Dr. Chua in the emergency department on 09/02/2018 at 15 24 hours. CODE CR POS: [facility]
--- NOTE | 2018-09-04 12:18 | EKG ---
Test Reason : Blood Pressure : / mmHG Vent. Rate : 047 BPM Atrial Rate : 047 BPM P-R Int : 172 ms QRS Dur : 102 ms QT Int : 486 ms P-R-T Axes : 064 -63 025 degrees QTc Int : 430 ms Sinus bradycardia with sinus arrhythmia Pulmonary disease pattern Left anterior fascicular block Minimal voltage criteria for LVH, may be normal variant T wave abnormality, consider anterior ischemia Left axis deviation Abnormal ECG No ST elevation/AL Confirmed by CATALINA KEMP, ZAIRA Orr ([id number]), graphic editor VERN MENDOZA ([id number]) on 09/04/2018 12:18:28 PM Referred By: Confirmed By:ZAIRA ARNOLD MD
== END 2018-09-02 17:48 | disposition home or self-care (01) ==
LOC: ERS 13:43
DX: R51 Headache (principal); R07.9 Chest pain, unspecified; I25.2 Old myocardial infarction; E03.9 Hypothyroidism, unspecified; I11.0 Hypertensive heart disease with heart failure; I50.9 Heart failure, unspecified; Z86.73 Personal history of transient ischemic attack (TIA), and cerebral infarction without residual deficits; Z79.899 Other long term (current) drug therapy; Z79.82 Long term (current) use of aspirin
CPT/HCPCS: 36416; 70496; 71045; 80053; 83880; 84484; 85025; 93005; 96374; 96375; J1200; J1885; J2765

== ENCOUNTER 2018-09-21 15:29 | Inpatient (IN) | payer MEDICARE ==
[2018-09-21 15:59] LABS: Actual Bicarbonate (HCO3a) 28.7 mEq/L (22-28); Analyzer IN Cardio ER; Base Excess (BEa) 2.9 mEq/L (-2.0 to +3.0); Carboxyhemoglobin (COHb) 2.2 gm% (0.0-3.0); Hemoglobin (Hb) 12.8 g/dL (12.0-16.0); Potassium - ABG Lab 4.39 mmol/L (3.70-5.30); pH, Arterial 7.39 (7.35-7.45)
[2018-09-21 16:03] LABS: O2 Tension (PaO2) 59.2 mmHg (> 80.0)
[2018-09-21] MEDS ORDERED: Acetaminophen 650 MG Suppository PR PRN (17:56)
[2018-09-21] MEDS ORDERED: Albuterol Sulfate 2.5 mg/3 ml Neb NEB PRN (17:56)
[2018-09-21] MEDS ORDERED: cloNIDine 0.1 MG TAB PO PRN (17:56)
[2018-09-21] MEDS ORDERED: Ondansetron ODT 4 MG TAB PO PRN (17:56)
[2018-09-21] MEDS ORDERED: Acetaminophen 325 MG TAB PO PRN (17:56)
[2018-09-21] MEDS ORDERED: traMADol HCl 50 MG TAB PO PRN (17:56)
[2018-09-21] MEDS ORDERED: Ondansetron PF 4 MG/2 ML Vial IVP PRN (17:56)
[2018-09-21 18:00] VITALS: BMI 33.2
[2018-09-21] MEDS ORDERED: Enoxaparin Sodium 40 MG/0.4 ML SYRINGE SC SCH (18:00)
--- NOTE | 2018-09-21 19:47 | HP ---
PRIMARY CARE PHYSICIAN: Dr. Marcus Lloyd. PRIMARY REJECTED ITEMS CLERK: Nicho Goldsmith MD PRIMARY DOG BEHAVIORIST: Robbie Fay MD CHIEF COMPLAINT: Shortness of breath. HISTORY OF PRESENT ILLNESS: Ms. Carrasco is a pleasant 68-year-old female with history of sarcoidosis; polycythemia rubra vera; unknown type of lung disease; possibly sleep apnea requiring a CPAP, has not been started yet; restless legs; hypertension; gastroesophageal reflux disease; and hypothyroidism, who presents to the emergency department for shortness of breath. She has been short of breath for a few days yesterday and started coughing up some foul looking sputum and less so today. She has had increased dyspnea on exertion, but denies any orthopnea or PND. She has had some increased wheezing and so went to the emergency department in [place]. At the outside emergency department, she was 85% on room air, she was reportedly wheezing and received nebulizer treatments that did not seem to help. Labs showed her BNP to be elevated at 900 over her baseline, most recent in the mid 200s and she responded well to oxygen. She was subsequently transferred here. ABG prior to transfer showed pH of 7.39 with pCO2 of 59. Here, she is breathing better. She denies any chest pain. No nausea, vomiting, diarrhea, or constipation. No change in her bowel or urinary habits. She denies any increase or decrease in her intake. We were subsequently called for admit. PAST MEDICAL HISTORY: 1. Polycythemia rubra vera. 2. Restless legs syndrome. 3. Nonspecific lung problems. 4. Essential hypertension. 5. Hypothyroidism. 6. Heart failure, based on echocardiogram in 03/2018 with an EF of 50% to 55%, moderately dilated LA and [id number] MR, heart failure. 7. Pulmonary function testing 05/10/2018 showed restrictive lung disease, unresponsive to bronchodilators and normal gas exchange. PAST SURGICAL HISTORY: 1. Cholecystectomy two years ago. 2. Left total knee replacement x2. 3. PTCA with stent in her head when she first diagnosed polycythemia. HOME MEDICATIONS: 1. Requip 4 mg p.o. at bedtime. 2. Lasix 80 mg daily. 3. Norvasc 10 mg daily. 4. Clonidine 0.1 mg p.o. t.i.d. p.r.n. elevated blood pressure. 5. Colestipol 2 g p.o. b.i.d. 6. Cymbalta 120 mg daily. 7. Gabapentin 1200 mg p.o. t.i.d. 8. Hydroxyurea 1000 mg. 9. Levothyroxine 125 mcg daily. 10. KCl 10 mEq b.i.d. 11. Prednisone 5 mg p.o. q.a.m. 12. Ropinirole 4 mg p.o. at bedtime. 13. Tramadol 25 mg p.o. q.6 hours p.r.n. for pain. 14. Ambien 5 mg p.o. at bedtime p.r.n. for insomnia. 15. Protonix 40 mg p.o. daily. ALLERGIES: LATEX. FAMILY HISTORY: Mom and dad both had hypertension, but no other history of coronary artery disease. She is . She is full code. is a surrogate medical decision maker, accompanies her. Negative for tobacco or alcohol historically. REVIEW OF SYSTEMS: All systems reviewed and negative, suggested as per HPI. PHYSICAL EXAMINATION: VITAL SIGNS: Temperature current 98.5, pulse 61, blood pressure 146/64, respiratory rate 20, saturating 95% on 2 L. GENERAL: She is awake. She is alert and oriented x3. Well developed, well nourished, slightly overweight, elderly white female, appears to be age appropriate and in no acute distress. HEENT: Normocephalic, atraumatic. Pupils are equal, round, and reactive to light bilaterally. Mucus membranes are moist. There is no visible lesion or thrush. NECK: Supple. She has no lymphadenopathy, JVD, or thyromegaly. She has normal carotid upstroke. There are no bruits. LUNGS: Have decreased inspiratory air flow and prolonged expiration. She has an expiratory high-pitched wheezing presently in the anterior hummel. There are faint bibasilar crackles. CARDIOVASCULAR: She is normocardic to slightly bradycardic. Normal S1, S2. She has a 2 to 3/6 holosystolic murmur best heard at the apex. ABDOMEN: Soft, nontender, nondistended. She had no masses. No organomegaly. EXTREMITIES: No signs of clubbing, showed trace pedal edema and 1+ distal peripheral pulses. SKIN: Warm, moist, and well perfused. She has no rash or lesions. MUSCULOSKELETAL: Normal to inspection. Large joints appear normal. There is no evidence of inflammation or palpable effusions. NEUROLOGIC: Cranial nerves 2 through 12 are grossly intact. She has no focal neurologic deficits, normal speech, 5/5 in all four extremities. LABORATORY DATA: ABG showed a pH of 7.39 with a pCO2 of 49 and PO2 of 59, and actual bicarb of 28.7. Labs at the outside emergency department showed a CBC, with white count of 9.1, hemoglobin 12.5, hematocrit of 40.5, and platelet count is 647,000. She has 93% granulocytes and 2% reactive lymphocytes, relative lymphopenia. Chemistry showed sodium of 143, potassium 4.7, chloride 107, bicarb 28, BUN 43, and creatinine 1.15, glucose of 140. Liver functions are slightly elevated with an AST of 46, ALT of 79, troponin was minimally elevated at 0.031 with a repeat of 0.016 and looking at her old labs, 0.036 to 0.01 is approximately her normal. Her BNP was elevated at 845.5 with a most recent on September 02 and prior to that when she was admitted for chest pain, it was 793. RADIOGRAPHIC STUDIES: Chest x-ray at the outside facility showed enlarged heart, pulmonary artery prominence suspicious for pulmonary arterial hypertension and mild pulmonary vascular congestion. No pneumothoraces or effusions. ASSESSMENT AND PLAN: 1. Acute hypoxemic respiratory failure. She has 85% saturation on room air, 95% to 96% on 2 L. We will continue oxygen as needed. She does have some expiratory prolongation and wheezing. We placed on steroids, nebs, and antibiotics for her colored sputum. I do not hear any rhonchi but certainly could be atypical bacterial infection. We will place in IMCU overnight as an inpatient with p.r.n. Toby. We will ask Pulmonary Critical Care to see. 2. Polycythemia rubra vera. Continue hydroxychloroquine. 3. History of restless legs, on gabapentin and Requip. 4. Gastroesophageal reflux disease. We will continue Protonix. 5. Hypertension. We will continue her home medications. Job ID: [id number]
[2018-09-21] MEDS: rOPINIRole HCl 2 MG TAB PO SCH (20:02)
[2018-09-21] MEDS: Zolpidem Tartrate 5 MG TAB PO PRN (20:02)
[2018-09-21] MEDS: Gabapentin 400 MG CAP PO SCH (20:03)
[2018-09-21 20:15] LABS: CKMB 1.3 ng/mL (0-6.6)
[2018-09-22 05:42] LABS: #Basophils 0.1 thou/uL (0.0-0.2); #Lymphocytes 0.3 thou/uL (1.20-3.40); #Neutrophils 9.4 thou/uL (1.40-6.50); %Eosinophils 0.2 % (0.0-10.0); %Lymphocytes 2.8 % (21.0-51.0); %Monocytes 0.2 % (0.0-10.0); %Neutrophils 95.8 % (42.0-75.0); Hemoglobin 12.3 g/dL (12.0-16.0); Mean Corpuscular HGB CONC 31.5 g/dL (32.0-36.0); Mean Corpuscular Hemoglobin 30.1 pg (27.0-31.0); Mean Corpuscular Volume 95.6 fL (78.0-98.0); Mean Platelet Volume 8.5 fL (7.4-10.4); Platelet Count 589 thou/uL (130-400); RBC Distribution Width 17.2 % (11.5-14.5); Red Blood Cell (RBC) Count 4.08 mill/uL (4.20-5.40); White Blood Cell (WBC) Count 9.8 thou/uL (4.8-10.8)
[2018-09-22 05:57] LABS: Anion Gap 14 mmol/L (10-20); BUN (Urea Nitrogen) 44 mg/dL (9.8-20.1); Calc. Creatinine Clearance 80 mL/min (70-130); Calcium 8.7 mg/dL (7.8-10.44); Carbon Dioxide 26 mmol/L (23-31); Chloride 105 mmol/L (98-107); Estimated GFR-MDRD 48; Glucose 177 mg/dL (80-115); Potassium 4.6 mmol/L (3.5-5.1); Sodium 140 mmol/L (136-145)
[2018-09-22] MEDS: Levothyroxine Sodium 125 MCG TAB PO SCH (05:57)
[2018-09-22] MEDS: Furosemide 80 MG TAB PO SCH (08:32)
[2018-09-22] MEDS: DULoxetine 60 MG CAP PO SCH (08:32)
[2018-09-22] MEDS: Amlodipine 10 MG TAB PO SCH (08:32)
[2018-09-22] MEDS: Gabapentin 400 MG CAP PO SCH ×3 (08:33→20:47)
[2018-09-22] MEDS: Hydroxyurea 500 MG CAP PO SCH (08:34)
[2018-09-22] MEDS: rOPINIRole HCl 2 MG TAB PO SCH (20:46)
[2018-09-22] MEDS ORDERED: Enoxaparin Sodium 40 MG/0.4 ML SYRINGE SC SCH (21:00)
[2018-09-22] MEDS: Zolpidem Tartrate 5 MG TAB PO PRN (21:20)
[2018-09-23] MEDS ORDERED: Guaifenesin DM 100-10/5 ML UDCUP PO PRN (02:08)
[2018-09-23] MEDS: Levothyroxine Sodium 125 MCG TAB PO SCH (05:50)
[2018-09-23 08:46] VITALS: BP 177/81; TEMP 97.6
[2018-09-23] MEDS: Amlodipine 10 MG TAB PO SCH (08:48)
[2018-09-23] MEDS: DULoxetine 60 MG CAP PO SCH (08:49)
[2018-09-23] MEDS: Furosemide 80 MG TAB PO SCH (08:49)
[2018-09-23] MEDS: Gabapentin 400 MG CAP PO SCH (08:50)
[2018-09-23] MEDS: Hydroxyurea 500 MG CAP PO SCH (08:50)
--- NOTE | 2018-09-23 10:39 | DIS ---
DATE OF ADMISSION: 09/21/2018 DATE OF DISCHARGE: 09/23/2018 MEDICATION: Medication reconciled at discharge, New Medications; 1. Prednisone 10 mg tablets, 4 tablets p.o. daily for 3 days, then 3 tablets p.o. daily for 3 days, then 2 tablets p.o. daily for 3 days, then 1 tablet daily for 3 days. 2. Levaquin 500 mg one p.o. at bedtime for 5 nights starting tonight. 3. Claritin 10 mg once daily. 4. Guaifenesin extended release 600 mg twice daily as needed for cough Discontinued medications are none. Continued medications are; 1. Amlodipine 10 mg daily. 2. Aspirin 81 mg daily. 3. Lipitor 40 mg daily. 4. Colestipol 2 g daily. 5. Cymbalta 120 mg daily. 6. Breo Ellipta two puffs inhaled daily. 7. Lasix 80 mg p.o. b.i.d. 8. Gabapentin 400 mg tablets, 3 tablets at bedtime. 9. Hydroxyurea 1500 mg once daily. 10. Levothyroxine 125 mcg daily. 11. Losartan 10 mg daily. 12. Protonix 40 mg daily. 13. Potassium chloride 10 mEq daily. 14. Ambien 5 mg at bedtime as needed. 15. Requip 5 mg at bedtime. FINAL DIAGNOSES: 1. Shortness of breath and cough secondary to restrictive lung disease, improved. 2. Possible congestive heart failure. SECONDARY DIAGNOSES: 1. Polycythemia rubra vera. 2. Restless leg syndrome. 3. Essential hypertension. 4. Dyslipidemia. 5. Hypothyroidism. 6. Chronic kidney disease stage 3 based on chart review. 7. Insomnia. HISTORY OF PRESENT ILLNESS: Ms. Carrasco is a 68-year-old female with the above medical problems, who presented to the emergency room with increasing shortness of breath as well as productive cough. She was also found to be hypoxic on room air, which she reports is new for her during the day. She does wear oxygen at night. On lab review at an outside hospital, she was found to have an elevated BNP, and was transferred to this facility for further evaluation and treatment. HOSPITAL COURSE: The patient was transferred here and started on IV steroids, IV Levaquin to cover for any possible bacterial infection, regular nebulizer treatments and oxygen. She reports improvement yesterday and feels like she is back to her baseline today. She does continue to cough and complains of postnasal drip for which she will be started on Claritin. She will also be changed over to oral prednisone for tapering course, and oral Levaquin to complete a full 1-week of treatment. The patient is ambulating overall, doing well, overall improved and does meet criteria for discharge to home. She will follow up closely with Dr. Goldsmith and Dr. Lloyd, her usual physicians. PHYSICAL EXAMINATION: On day of discharge; VITAL SIGNS: Her blood pressure prior to medications 177/81, however earlier it was 166/72 and 141/67, pulse 77, temp 97.6, saturations 94% on 2 L nasal cannula. GENERAL: Awake, alert, responsive, and no apparent distress. Frequently coughing during evaluation. HEENT: Her pupils are equal and round. LUNGS: Some few scattered rhonchi. Good air movement. No audible wheezing or rales. HEART: Normal S1 and S2. Regular rate and rhythm. No audible murmur. ABDOMEN: Soft. Present bowel sounds. EXTREMITIES: No clubbing, cyanosis, or edema. COTA FINDINGS AND TEST RESULTS: CBC; 9.8, 12.3, 39, 589. BMP yesterday 140, 4.6 , 105, 26, 44, 1.13 with a glucose of 177. Troponins were 0.016 and 0.031. Chest x-ray on 09/21/2018 showed heart enlarge, prominence of the pulmonary artery suspicious for pulmonary arterial hypertension, mild pulmonary vascular congestion, no pneumothorax or large effusion. FOLLOWUP: 1. Followup with Dr. Goldsmith within a week for reevaluation of breathing status and any other needs. 2. Followup with Dr. Lloyd also within a week to review this hospitalization and address any other health needs. DIET: Heart healthy. ACTIVITY: As tolerated. The patient to continue wearing her oxygen at night and also to wear during the day if her blood oxygen levels are less than 92%. I reviewed with the patient this hospitalization, the importance of followup, the return to the emergency room precautions. She demonstrated understanding. TIME SPENT: Total time for discharge is 45 minutes. Job ID: [id number] MTDD
[2018-09-25] MEDS ORDERED: Hydroxyurea 500 MG CAP PO SCH (09:00)
== END 2018-09-23 11:15 | disposition home or self-care (01) | DRG 189 ==
LOC: ERS 15:29 → IMCU/EMU 16:16 → ONC 09-22 13:28
PROVIDERS: ADMIT Internal Medicine Infectious Disease; ATTEND Internal Medicine Infectious Disease
DX: J96.01 Acute respiratory failure with hypoxia (principal); I13.0 Hypertensive heart and chronic kidney disease with heart failure and stage 1 through stage 4 chronic kidney disease, or unspecified chronic kidney disease; J98.4 Other disorders of lung; Z99.81 Dependence on supplemental oxygen; N18.3 Chronic kidney disease, stage 3 (moderate); I50.9 Heart failure, unspecified; D45 Polycythemia vera; D86.9 Sarcoidosis, unspecified; E03.9 Hypothyroidism, unspecified; E78.5 Hyperlipidemia, unspecified; I25.2 Old myocardial infarction; G25.81 Restless legs syndrome; K21.9 Gastro-esophageal reflux disease without esophagitis; Z79.82 Long term (current) use of aspirin; Z79.899 Other long term (current) drug therapy
CPT/HCPCS: 36415; 80048; 82553; 82805; 85025; 93798; 94640; 99285; J1650; J1956; J2920; J7620

== ENCOUNTER 2018-11-01 08:28 | Emergency (ER) | payer MEDICARE ==
[2018-11-01] MEDS ORDERED: Morphine 4 MG/ML VIAL ONE (09:22)
--- NOTE | 2018-11-01 09:59 | RAD ---
LUMBAR SPINE SERIES THREE VIEWS: History: Low back pain radiating to the left leg. Comparison: 07-31-16 FINDINGS: There is compression changes involving the superior endplate of L3, stable. Minimal loss of vertebral body height related to the superior endplate of L2 and L4, also stable. There is as well some inferi or endplate changes of L1. There are some moderate arthritic changes of the spine. Disc narrowing is most pronounced at L2-3, L3-4, and L5-S1. Laminectomy changes are seen at the L2-3 level. Vascular calcifications are noted. IMPRESSION: Marked arthritic changes of the spine and post op changes are again noted. Stable overall appearance. POS: [facility]
== END 2018-11-01 10:54 | disposition home or self-care (01) ==
LOC: ERS 08:28
DX: M54.5 Low back pain (principal); I25.2 Old myocardial infarction; E03.9 Hypothyroidism, unspecified; I11.0 Hypertensive heart disease with heart failure; I50.9 Heart failure, unspecified; Z86.73 Personal history of transient ischemic attack (TIA), and cerebral infarction without residual deficits; Z79.899 Other long term (current) drug therapy; Z79.82 Long term (current) use of aspirin
CPT/HCPCS: 72100; 94760; 96372; J2270

== ENCOUNTER 2018-11-28 07:13 | Inpatient (IN) | payer MEDICARE ==
[2018-11-28] MEDS ORDERED: Furosemide 40 MG/4 ML VIAL ONE ×2 (08:21→14:31)
[2018-11-28] MEDS ORDERED: Aspirin Chewable 81 MG TAB ONE (08:21)
[2018-11-28] MEDS ORDERED: Nitroglycerin 2% Ointment 1 INCH/1 GM Packet ONE (08:21)
--- NOTE | 2018-11-28 08:35 | RAD ---
CHEST 1 VIEW: Date: 11/28/18 HISTORY: Dyspnea. COMPARISON: 09/21/18. FINDINGS: Cardiac silhouette is magnified and enlarged. Pulmonary vasculature is engorged with widespread retic ulonodular interstitial prominence and patchy bilateral infiltrates. Mediastinum is midline with aort ic calcification. No lobar consolidation or evidence of pneumothorax. IMPRESSION: 1. Cardiomegaly with pulmonary vascular congestion. Radiographic findings of mild CHF are similar to the previous exam. 2. Atherosclerosis. POS: [facility]
[2018-11-28 08:36] LABS: ALT (SGPT) 13 U/L (8-55); AST (SGOT) 20 U/L (5-34); Albumin 3.8 g/dL (3.4-4.8); Alkaline Phosphatase 98 U/L (40-150); Anion Gap 15 mmol/L (10-20); BUN (Urea Nitrogen) 50 mg/dL (9.8-20.1); Bilirubin, Total 0.6 mg/dL (0.2-1.2); Calc. Creatinine Clearance 0 mL/min (70-130); Calcium 8.3 mg/dL (7.8-10.44); Carbon Dioxide 29 mmol/L (23-31); Chloride 103 mmol/L (98-107); Estimated GFR-MDRD 38; Globulin 2.7 g/dL (2.4-3.5); Glucose 138 mg/dL (80-115); Potassium 4.6 mmol/L (3.5-5.1); Protein, Total 6.5 g/dL (6.0-8.3); Sodium 142 mmol/L (136-145)
[2018-11-28 08:50] LABS: Anisocytosis SLIGHT = 6-15 cells (100X) (0-5/hpf); Band 7 % (5-11); Eosinophils 1 % (0-10); Hemoglobin 12.9 g/dL (12.0-16.0); Lymphocytes 5 % (21-51); MDiff Complete? YES; Mean Corpuscular HGB CONC 29.7 g/dL (32.0-36.0); Mean Corpuscular Hemoglobin 29.5 pg (27.0-31.0); Mean Corpuscular Volume 99.2 fL (78.0-98.0); Mean Platelet Volume 8.4 fL (7.4-10.4); Monocytes 1 % (0-10); Neutrophil 85 % (42-75); Platelet Count 740 thou/uL (130-400); Platelet Morphology Comment Appears Increased; RBC Distribution Width 20.7 % (11.5-14.5); Red Blood Cell (RBC) Count 4.37 mill/uL (4.20-5.40); White Blood Cell (WBC) Count 8.2 thou/uL (4.8-10.8)
[2018-11-28] MEDS ORDERED: Bisacodyl 10 MG SUPP PR PRN (11:19)
[2018-11-28] MEDS ORDERED: Sodium Chloride 0.65% Nasal 44 ML BOT EA NARE PRN (11:19)
[2018-11-28] MEDS ORDERED: Senokot S 8.6-50 MG TAB PO PRN (11:19)
[2018-11-28] MEDS ORDERED: Acetaminophen 325 MG TAB PO PRN (11:19)
[2018-11-28] MEDS ORDERED: Eucerin (Mineral Oil/Petrolatum,White) 30 gm Jar TOP PRN (11:19)
[2018-11-28] MEDS ORDERED: Artificial Tears 18 DROP/0.9 ML EA EYE PRN (11:19)
[2018-11-28] MEDS ORDERED: hydrALAZINE 20 MG/ML VIAL SLOW IVP PRN (11:19)
[2018-11-28] MEDS ORDERED: Ondansetron PF 4 MG/2 ML Vial IVP PRN (11:19)
[2018-11-28] MEDS ORDERED: Loratadine 10 MG TAB PO PRN (11:19)
[2018-11-28] MEDS ORDERED: Loperamide HCl 2 MG CAP PO PRN (11:19)
[2018-11-28] MEDS ORDERED: Cepastat Lozenges 1 LOZ PO PRN (11:19)
[2018-11-28] MEDS ORDERED: Calcium Carbonate 500 MG ChewTAB PO PRN (11:19)
[2018-11-28] MEDS ORDERED: Nitroglycerin 0.4 MG TAB (25 Tab Bottle) SL PRN (11:19)
[2018-11-28] MEDS ORDERED: Ondansetron ODT 4 MG TAB PO PRN (11:19)
--- NOTE | 2018-11-28 11:42 | HP ---
PRIMARY CARE PHYSICIAN: Marcus Lloyd MD. REASON FOR ADMISSION: Increasing shortness of breath. HISTORY OF PRESENT ILLNESS: A 68-year-old female, who has underlying history of polycythemia vera as well as chronic diastolic heart failure and restrictive lung disease, who presented to emergency room with complaint of increasing shortness of breath. The patient reports that she was having increasing cough on , which was productive of yellowish-green initially on and Thursday and Thursday it was reduced to whitish and today she had clear sputum. She denies any fevers. She was experiencing right-sided chest discomfort when she was coughing. She was also able to hear her own wheezing on and Thursday. The patient had pneumonia in the past as well as congestive heart failure in the past and she was concerned about and that is why she asked her to bring her to the emergency room for evaluation. In the emergency room, this patient was vitals tuttle stable with oxygen saturation 98% on 2 L. The patient does use oxygen during nighttime. She denies any recent travel or sick exposure. She denies any flu-like symptoms. She does have mild sore throat, but she denies any fever or body aches. She denies any constipation, diarrhea, melena, or hematochezia. In the emergency room, the patient had routine blood test done, which showed elevated BNP. The patient was given respiratory therapy. Her chest x-ray showed pulmonary vascular congestion. She was hypertensive and that is why she was given nitroglycerin patch and Lasix. Subsequently, we decided to admit this patient for both CHF exacerbation and possible bronchitis. REVIEW OF SYSTEMS: CONSTITUTIONAL: Negative for weight loss or gain, ability to conduct usual activities. SKIN: Negative for rash, itching. EYES: Negative for double vision, pain. ENT/MOUTH: Negative for nose bleeding, neck stiffness, pain, tenderness. CARDIOVASCULAR: Negative for palpitations, dyspnea on exertion, orthopnea. RESPIRATORY: Negative for shortness of breath, wheezing, cough, hemoptysis, fever or night sweats. GASTROINTESTINAL: Negative for poor appetite, abdominal pain, heartburn, nausea, vomiting, constipation, or diarrhea. GENITOURINARY: Negative for urgency, frequency, dysuria, nocturia. MUSCULOSKELETAL: Negative for pain, swelling. NEUROLOGIC/PSYCHIATRIC: Negative for anxiety, depression. ALLERGY/IMMUNOLOGIC: Negative for skin rash, bleeding tendency. Please see my HPI for pertinent positives and negatives. All other review of systems reviewed and negative except as mentioned in the HPI. 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 PAST SURGICAL HISTORY: Cholecystectomy, left total knee replacement, cardiac catheterization with stent placement. PAST PSYCHIATRIC HISTORY: Anxiety and depression. SOCIAL HISTORY: The patient is , lives at home with her . No history of tobacco, alcohol, or illicit drug abuse. ALLERGIES: LATEX. FAMILY HISTORY: Mother and father both had hypertension. No strong family history of coronary artery disease. CURRENT HOME MEDICATIONS: 1. Cymbalta 60 mg twice daily. 2. Amlodipine 10 mg daily. 3. Lasix 80 mg b.i.d. 4. Synthroid 125 mcg daily. 5. Abilify 5 mg p.o. daily. 6. Lipitor 40 mg p.o. daily. 7. Losartan 100 mg daily. 8. Hydroxyurea 500 mg twice daily. 9. Protonix 40 mg p.o. daily. 10. Colestipol 1 g daily. 11. Ropinirole 3 mg p.o. daily. 12. Gabapentin 400 mg three times daily. 13. Aspirin 81 mg daily. 14. Flexeril 10 mg q.8 hourly p.r.n. 15. Tylenol No. 3 one tablet q.6 hourly p.r.n. EMERGENCY ROOM COURSE: The patient is given Lasix 40 mg nitroglycerin patch, aspirin 325 mg, DuoNeb therapy. PHYSICAL EXAMINATION: VITAL SIGNS: Currently, blood pressure 149/60, pulse 65, respiratory rate 24, temperature 98.8, saturation 96% on 2 L oxygen. Weight 104.3 kg. GENERAL: The patient is currently alert, awake, in no obvious acute distress. HEENT: Head; normocephalic, atraumatic. Eyes; pupils round, reactive to light. Extraocular muscle intact. ENT; oropharynx within normal limit. Moist mucous membranes. No oral lesion. No pharyngeal erythema. No exudate. NECK: Supple. No JVD. No thyromegaly. No carotid bruit. LUNGS: Bilateral rales noted, more on the right side. Few wheezing heard. CARDIAC: S1 and S2 regular. Systolic murmur present at the left sternal border. No gallop. ABDOMEN: Soft. Obesity present. Bowel sounds present. Nontender. Nondistended. No organomegaly. No mass. No suprapubic tenderness. BACK: Unremarkable. No CVA tenderness. EXTREMITIES: Upper extremity, passive movement of all joints are normal. Lower extremity, trace lower extremity edema noted. Good distal pulsation. SKIN: No skin rash. HEMATOLOGICAL: No lymphadenopathy. NEUROLOGIC: Nonfocal examination. SIGNIFICANT LABORATORY DATA: EKG showing premature ventricular complexes, left anterior fascicular block, nonspecific ST-T changes. Chest x-ray showing pulmonary vascular congestion. Interstitial infiltration noted. CBC; WBC 8.2, hemoglobin 12.9, platelet 740 with bandemia. BMP; sodium 142, potassium 4.6, chloride 103, carbon dioxide 29, BUN 50, creatinine 1.37, glucose 138, calcium 8.3. LFT; AST 20, ALT 13, alkaline phosphatase 98, albumin 3.8. BNP 309.7. Troponin 0.020. ASSESSMENT AND PLAN: 1. Acute on chronic diastolic congestive heart failure. This patient has a baseline echocardiography in March 2018, which showed normal EF with moderate tricuspid regurgitation. Currently, the patient has elevated BNP. The patient does have dyspnea on exertion, orthopnea, and trace lower extremity edema as well as pulmonary vascular congestion. The patient will be treated with Lasix 40 mg IV b.i.d. Fluid restriction to 1500 mL per day. We will monitor on telemetry floor. We will control her blood pressure and will resume selected home medication. 2. Acute bronchitis/early pneumonia. We will check respiratory virus panel to rule out any viral etiology. The patient will be given empiric antibiotic therapy with cefepime 2 g IV q.12 hourly, Florastor 250 mg p.o. daily and DuoNeb every 4 hourly as well as Breo Ellipta inhalation daily, Mucinex 600 mg twice daily. 3. Hypertension. We will continue amlodipine 10 mg p.o. daily, losartan 25 mg p.o. daily. 4. Gastroesophageal reflux disease. We will continue Protonix 40 mg p.o. daily. 5. Hypothyroidism. Continue Synthroid 125 mcg p.o. daily. 6. Anxiety and depression. Continue Cymbalta as per home dosage. 7. Myeloproliferative disorder. Continue hydroxyurea as per home dosage. 8. Dyslipidemia. Continue Lipitor 40 mg p.o. at bedtime. 9. Coronary artery disease. Continue aspirin 81 mg p.o. daily. 10. Deep venous thrombosis prophylaxis. Lovenox 40 mg subcu daily. 11. Gastrointestinal prophylaxis. Protonix 40 mg p.o. daily. CODE STATUS: The patient is full code. The patient's is surrogate decision maker. DISPOSITION PLAN: Based on clinical course, we are expecting the patient's stay in the hospital more than 2 midnights. Plan of care discussed with the patient and in the emergency room in detail. Job ID: [id number]
[2018-11-28] MEDS ORDERED: Cefepime 2 GM VIAL ONE (12:56)
[2018-11-28] MEDS: Cefepime 2 GM in Sodium Chloride 0.9% 100 ML IVPB SCH (13:12)
[2018-11-28] MEDS ORDERED: methylPREDNISolone Sod Succ 40 MG VIAL ONE ×2 (14:31→23:18)
[2018-11-28] MEDS: Furosemide 40 MG/4 ML VIAL SLOW IVP SCH (14:38)
[2018-11-28] MEDS: methylPREDNISolone Sod Succ 40 MG VIAL IVP SCH (14:40)
[2018-11-28] MEDS ORDERED: HYDROcodone/Acetaminophen 5/325 mg Tablet ONE ×2 (16:52→23:54)
[2018-11-28] MEDS: HYDROcodone/Acetaminophen 5/325 mg Tablet PO PRN ×2 (16:55→23:56)
[2018-11-28] MEDS ORDERED: Mometasone/Formoterol 120 PUFF INHALER ONE (19:25)
[2018-11-28] MEDS: Mometasone/Formoterol 120 PUFF INHALER INH SCH (20:02)
[2018-11-29] MEDS: Cefepime 2 GM in Sodium Chloride 0.9% 100 ML IVPB SCH ×2 (01:00→13:55)
[2018-11-29 03:33] LABS: #Lymphocytes 0.7 thou/uL (1.20-3.40); #Neutrophils 6.8 thou/uL (1.40-6.50); %Eosinophils 0.3 % (0.0-10.0); %Lymphocytes 9.5 % (21.0-51.0); %Monocytes 0.3 % (0.0-10.0); Hemoglobin 13.5 g/dL (12.0-16.0); Mean Corpuscular HGB CONC 30.4 g/dL (32.0-36.0); Mean Corpuscular Hemoglobin 30.3 pg (27.0-31.0); Mean Corpuscular Volume 99.7 fL (78.0-98.0); Mean Platelet Volume 8.2 fL (7.4-10.4); Platelet Count 693 thou/uL (130-400); RBC Distribution Width 20.7 % (11.5-14.5); Red Blood Cell (RBC) Count 4.47 mill/uL (4.20-5.40); White Blood Cell (WBC) Count 7.5 thou/uL (4.8-10.8)
[2018-11-29 03:57] LABS: Anion Gap 14 mmol/L (10-20); BUN (Urea Nitrogen) 44 mg/dL (9.8-20.1); Calc. Creatinine Clearance 0 mL/min (70-130); Calcium 8.6 mg/dL (7.8-10.44); Carbon Dioxide 30 mmol/L (23-31); Chloride 102 mmol/L (98-107); Estimated GFR-MDRD 42; Glucose 147 mg/dL (80-115); Magnesium 2.5 mg/dL (1.6-2.6); Sodium 141 mmol/L (136-145); Uric Acid 13.3 mg/dL (2.6-6.0)
[2018-11-29] MEDS ORDERED: HYDROcodone/Acetaminophen 5/325 mg Tablet ONE ×2 (05:28→13:43)
[2018-11-29] MEDS: HYDROcodone/Acetaminophen 5/325 mg Tablet PO PRN ×3 (05:34→21:27)
[2018-11-29] MEDS ORDERED: Furosemide 40 MG/4 ML VIAL ONE (06:12)
[2018-11-29] MEDS: Levothyroxine Sodium 125 MCG TAB PO SCH (06:16)
[2018-11-29] MEDS: Furosemide 40 MG/4 ML VIAL SLOW IVP SCH ×2 (06:16→15:24)
[2018-11-29] MEDS: Mometasone/Formoterol 120 PUFF INHALER INH SCH ×2 (07:21→20:26)
[2018-11-29] MEDS: Saccharomyces boulardii 250 MG CAP PO SCH (09:00)
[2018-11-29] MEDS ORDERED: VILANTEROL INH SCH (09:00)
[2018-11-29] MEDS ORDERED: FLUTICASONE INH SCH (09:00)
[2018-11-29] MEDS: guaiFENesin ER 600 MG TAB PO SCH ×3 (09:00→19:57)
[2018-11-29] MEDS: Amlodipine 10 MG TAB PO SCH (09:01)
[2018-11-29] MEDS: DULoxetine 60 MG CAP PO SCH (09:02)
[2018-11-29] MEDS ORDERED: Enoxaparin Sodium 40 MG/0.4 ML SYRINGE ONE (09:05)
[2018-11-29] MEDS ORDERED: Aspirin Chewable 81 MG TAB ONE (09:05)
[2018-11-29] MEDS: Aspirin Chewable 81 MG TAB PO SCH (09:06)
[2018-11-29] MEDS: Enoxaparin Sodium 40 MG/0.4 ML SYRINGE SC SCH (09:06)
--- NOTE | 2018-11-29 12:10 | PDOC.PN ---
- Subjective Encounter Start Date: 11/29/18 Encounter Start Time: 09:25 -: old records requested/rev Patient seen and examined. No new complaints. No overnight events pt has cough and congestion but feels better than yesterday - Objective Resuscitation Status - Order Detail: 11/28/18 11:14 Resuscitation Status Routine Resuscitation Status: FULL: Full Resuscitation MAR Reviewed: Yes Vital Signs & Weight: Vital Signs (12 hours) Pulse Resp Pulse Ox 11/29/18 10:29 72 18 96 11/29/18 09:01 62 11/29/18 07:23 62 17 94 L 11/29/18 03:21 81 22 H 94 L Result Diagrams: 11/29/18 03:28 11/29/18 03:28 EKG Reviewed by me: Yes (nsr) Phys Exam - Physical Examination Constitutional: NAD HEENT: PERRLA, moist MMs, sclera anicteric Neck: no JVD, supple Respiratory: no wheezing, no rhonchi rales on right side Cardiovascular: RRR, no significant murmur, no rub Gastrointestinal: soft, non-tender, no distention, positive bowel sounds Musculoskeletal: no edema, pulses present Neurological: non-focal, normal sensation Lymphatic: no nodes Psychiatric: normal affect, A&O x 3 Skin: no rash, normal turgor Dx/Plan (1) Acute bronchitis Code(s): J20.9 - ACUTE BRONCHITIS, UNSPECIFIED Status: Acute (2) Acute on chronic diastolic ACC/AHA stage C congestive heart failure Code(s): I50.33 - ACUTE ON CHRONIC DIASTOLIC (CONGESTIVE) HEART FAILURE Status : Acute (3) Anxiety and depression Code(s): F41.9 - ANXIETY DISORDER, UNSPECIFIED; F32.9 - MAJOR DEPRESSIVE DISORDER, SINGLE EPISODE, UNSPECIFIED Status: Chronic (4) CKD (chronic kidney disease) stage 3, GFR 30-59 ml/min Code(s): N18.3 - CHRONIC KIDNEY DISEASE, STAGE 3 (MODERATE) Status: Chronic (5) Dyslipidemia Code(s): E78.5 - HYPERLIPIDEMIA, UNSPECIFIED Status: Chronic (6) GERD (gastroesophageal reflux disease) Code(s): K21.9 - GASTRO-ESOPHAGEAL REFLUX DISEASE WITHOUT ESOPHAGITIS Status: Chronic (7) Hypertension Code(s): I10 - ESSENTIAL (PRIMARY) HYPERTENSION Status: Chronic (8) Hypothyroidism Code(s): E03.9 - HYPOTHYROIDISM, UNSPECIFIED Status: Chronic (9) Restless leg syndrome Status: Chronic - Plan cont current plan of care, continue antibiotics, respiratory therapy * continue cefepime * continue solumedrol * continue lasix * ok to admit to medical floor * medication reviewed as below * symptomatic treatment. Review of Systems - Review of Systems Constitutional: negative: fever, chills, sweats, weakness, malaise, other Eyes: negative: Pain, Vision Change, Conjunctivae Inflammation, Eyelid Inflammation, Redness, Other ENT: negative: Ear Pain, Ear Discharge, Nose Pain, Nose Discharge, Nose Congestion, Mouth Pain, Mouth Swelling, Throat Pain, Throat Swelling, Other Respiratory: Cough, Shortness of Breath. negative: Dry, Hemoptysis, SOB with Excertion, Pleuritic Pain, Sputum, Wheezing Cardiovascular: negative: chest pain, palpitations, orthopnea, paroxysmal nocturnal dyspnea, edema, light headedness, other Gastrointestinal: negative: Nausea, Vomiting, Abdominal Pain, Diarrhea, Constipation, Melena, Hematochezia, Other Genitourinary: negative: Dysuria, Frequency, Incontinence, Hematuria, Retention , Other Musculoskeletal: negative: Neck Pain, Shoulder Pain, Arm Pain, Back Pain, Hand Pain, Leg Pain, Foot Pain, Other Skin: negative: Rash, Lesions, Stan, Bruising, Other - Medications/Allergies Allergies/Adverse Reactions: Allergies Allergy/AdvReac Type Severity Reaction Status Date / Time latex Allergy Verified 04/21/18 01:00 Medications: Current Medications Acetaminophen (Tylenol) 650 mg PO Q4H PRN PRN Reason: Headache/Fever/Mild Pain (1-3) Hydrocodone Bitart/Acetaminophen ([place] 5/325) 1 tab PO Q4H PRN PRN Reason: Moderate Pain (4-6) Last Admin: 11/29/18 05:34 Dose: 1 tab Albuterol/Ipratropium (Duoneb) 3 ml NEB [id number] [facility] Last Admin: 11/29/18 10:29 Dose: 3 ml Amlodipine Besylate (Norvasc) 10 mg PO DAILY [facility] Last Admin: 11/29/18 09:01 Dose: 10 mg Artificial Tears (Tears Naturale) 2 drop EA EYE PRN PRN PRN Reason: Dry Eyes Aspirin (Aspirin Chewable) 81 mg PO DAILY [facility] Last Admin: 11/29/18 09:06 Dose: 81 mg Atorvastatin Calcium (Lipitor) 40 mg PO HS [facility] Bisacodyl (Dulcolax) 10 mg RI DAILYPRN PRN PRN Reason: Constipation Calcium Carbonate (Tums) 1,000 mg PO Q4H PRN PRN Reason: Heartburn or Indigestion Duloxetine HCl (Cymbalta) 120 mg PO DAILY [facility] Last Admin: 11/29/18 09:02 Dose: 120 mg Enoxaparin Sodium (Lovenox) 40 mg SC 0900 [facility] Last Admin: 11/29/18 09:06 Dose: 40 mg Furosemide (Lasix) 40 mg SLOW IVP 0600,1400 [facility] Last Admin: 11/29/18 06:16 Dose: 40 mg Gabapentin (Neurontin) 1,200 mg PO QPM [facility] Guaifenesin (Mucinex) 600 mg PO Q12HR [facility] Last Admin: 11/29/18 09:00 Dose: 600 mg Guaifenesin (Robitussin Sf) 200 mg PO Q4H PRN PRN Reason: Cough Hydralazine HCl (Apresoline) 10 mg SLOW IVP Q4H PRN PRN Reason: SBP > 180 and HR < 70 Cefepime HCl 2 gm/ Sodium (Chloride) 100 mls @ 200 mls/hr IVPB 0100,1300 [facility] Last Admin: 11/29/18 01:00 Dose: 100 mls Levothyroxine Sodium (Synthroid) 125 mcg PO 0600 [facility] Last Admin: 11/29/18 06:16 Dose: 125 mcg Loperamide HCl (Imodium) 2 mg PO PRN PRN PRN Reason: Diarrhea/Loose Stools Loratadine (Claritin) 10 mg PO DAILYPRN PRN PRN Reason: Sinus Symptoms Methylprednisolone Sodium Succinate (Solu-Medrol) 20 mg IVP Q8HR [facility] Last Admin: 11/28/18 14:40 Dose: 20 mg Mineral Oil/White Petrolatum (Eucerin Cream) 0 gm TOP BIDPRN PRN PRN Reason: Dry Skin Mometasone Furoate/Formoterol Fumar (Dulera 200 Mcg/5 Mcg Inhaler) 2 puff INH BID-RT [facility] Last Admin: 11/29/18 07:21 Dose: 2 puff Nitroglycerin (Nitrostat) 0.4 mg SL Q5MIN PRN PRN Reason: Chest Pain Ondansetron HCl (Zofran Odt) 4 mg PO Q6H PRN PRN Reason: Nausea/Vomiting Ondansetron HCl (Zofran) 4 mg IVP Q6H PRN PRN Reason: Nausea/Vomiting Pantoprazole Sodium (Protonix) 40 mg PO DAILY [facility] Last Admin: 11/29/18 09:05 Dose: 40 mg Ropinirole HCl (Requip) 5 mg PO QPM [facility] Saccharomyces Boulardii (Florastor) 250 mg PO DAILY [facility] Last Admin: 11/29/18 09:00 Dose: 250 mg Senna/Docusate Sodium (Senokot S) 2 tab PO BID PRN PRN Reason: Constipation Sodium Chloride ([place] Nasal [place] 0.65%) 0 ml EA NARE QIDPRN PRN PRN Reason: Nasal Congestion Throat Lozenges (Cepastat Lozenges) 1 janeth PO Q2H PRN PRN Reason: Sore Throat Zolpidem Tartrate (Ambien) 5 mg PO HSPRN PRN PRN Reason: Insomnia
[2018-11-29] MEDS: Diabetic Tussin 200 MG/10 ML UDCUP PO PRN ×2 (12:50→19:52)
[2018-11-29] MEDS ORDERED: Cefepime 2 GM VIAL ONE (13:51)
[2018-11-29 14:29] VITALS: BMI 36.5
[2018-11-29] MEDS: Atorvastatin Calcium 40 MG TAB PO SCH ×2 (15:20→19:55)
[2018-11-29] MEDS: Gabapentin 400 MG CAP PO SCH ×2 (15:20→19:56)
[2018-11-29] MEDS: rOPINIRole HCl 2 MG TAB PO SCH ×2 (15:21→19:58)
[2018-11-29] MEDS: methylPREDNISolone Sod Succ 40 MG VIAL IVP SCH ×3 (15:21→21:26)
[2018-11-29] MEDS: Zolpidem Tartrate 5 MG TAB PO PRN (21:26)
[2018-11-30] MEDS: Cefepime 2 GM in Sodium Chloride 0.9% 100 ML IVPB SCH ×2 (00:52→12:18)
[2018-11-30] MEDS: Diabetic Tussin 200 MG/10 ML UDCUP PO PRN ×2 (03:47→17:40)
[2018-11-30] MEDS: HYDROcodone/Acetaminophen 5/325 mg Tablet PO PRN ×2 (05:33→17:41)
[2018-11-30] MEDS: Levothyroxine Sodium 125 MCG TAB PO SCH (05:34)
[2018-11-30] MEDS: Furosemide 40 MG/4 ML VIAL SLOW IVP SCH ×2 (05:34→13:55)
[2018-11-30] MEDS: methylPREDNISolone Sod Succ 40 MG VIAL IVP SCH ×3 (05:34→20:08)
[2018-11-30] MEDS: Mometasone/Formoterol 120 PUFF INHALER INH SCH ×2 (07:45→19:24)
[2018-11-30] MEDS: Amlodipine 10 MG TAB PO SCH (08:28)
[2018-11-30] MEDS: DULoxetine 60 MG CAP PO SCH (08:28)
[2018-11-30] MEDS: guaiFENesin ER 600 MG TAB PO SCH ×2 (08:29→20:07)
[2018-11-30] MEDS: Enoxaparin Sodium 40 MG/0.4 ML SYRINGE SC SCH (08:29)
[2018-11-30] MEDS: Aspirin Chewable 81 MG TAB PO SCH (08:29)
[2018-11-30] MEDS: Saccharomyces boulardii 250 MG CAP PO SCH (08:29)
--- NOTE | 2018-11-30 10:35 | PDOC.PN ---
- Subjective Encounter Start Date: 11/30/18 Encounter Start Time: 09:00 pt still has cough and she is getting recurrent same problem - Objective Resuscitation Status - Order Detail: 11/28/18 11:14 Resuscitation Status Routine Resuscitation Status: FULL: Full Resuscitation MAR Reviewed: Yes Vital Signs & Weight: Vital Signs (12 hours) Temp Pulse Resp BP BP BP Pulse Ox 11/30/18 08:28 65 160/68 H 11/30/18 08:00 99 11/30/18 07:46 97.6 F 65 16 160/68 H 99 11/30/18 07:44 69 20 90 L 11/30/18 04:00 97.8 F 64 18 170/69 H 92 L 11/30/18 02:34 66 16 11/30/18 00:15 98.2 F 65 20 166/67 H 91 L 11/29/18 22:34 20 Weight Weight 229 lb 12.8 oz I&O: 11/29/18 11/30/18 12/01/18 06:59 06:59 06:59 Intake Total 230 180 Output Total 1900 Balance -1670 180 Result Diagrams: 11/29/18 03:28 11/29/18 03:28 Phys Exam - Physical Examination Constitutional: NAD HEENT: PERRLA, moist MMs, sclera anicteric Neck: no JVD, supple Respiratory: no wheezing, no rhonchi right rales+ Cardiovascular: RRR, no significant murmur, no rub Gastrointestinal: soft, non-tender, no distention, positive bowel sounds Musculoskeletal: no edema, pulses present Neurological: non-focal, normal sensation, moves all 4 limbs Lymphatic: no nodes Psychiatric: normal affect, A&O x 3 Skin: no rash, normal turgor Dx/Plan (1) Acute bronchitis Code(s): J20.9 - ACUTE BRONCHITIS, UNSPECIFIED Status: Acute (2) Acute on chronic diastolic ACC/AHA stage C congestive heart failure Code(s): I50.33 - ACUTE ON CHRONIC DIASTOLIC (CONGESTIVE) HEART FAILURE Status : Acute (3) Anxiety and depression Code(s): F41.9 - ANXIETY DISORDER, UNSPECIFIED; F32.9 - MAJOR DEPRESSIVE DISORDER, SINGLE EPISODE, UNSPECIFIED Status: Chronic (4) CKD (chronic kidney disease) stage 3, GFR 30-59 ml/min Code(s): N18.3 - CHRONIC KIDNEY DISEASE, STAGE 3 (MODERATE) Status: Chronic (5) Dyslipidemia Code(s): E78.5 - HYPERLIPIDEMIA, UNSPECIFIED Status: Chronic (6) GERD (gastroesophageal reflux disease) Code(s): K21.9 - GASTRO-ESOPHAGEAL REFLUX DISEASE WITHOUT ESOPHAGITIS Status: Chronic (7) Hypertension Code(s): I10 - ESSENTIAL (PRIMARY) HYPERTENSION Status: Chronic (8) Hypothyroidism Code(s): E03.9 - HYPOTHYROIDISM, UNSPECIFIED Status: Chronic (9) Restless leg syndrome Status: Chronic - Plan cont current plan of care, continue antibiotics, respiratory therapy * medication reviewed as below * symptomatic treatment * tomorrow will repeat chest xray and if no improvement, then will consider pulmonary evaluation. Review of Systems - Review of Systems ENT: negative: Ear Pain, Ear Discharge, Nose Pain, Nose Discharge, Nose Congestion, Mouth Pain, Mouth Swelling, Throat Pain, Throat Swelling, Other Respiratory: Cough, Sputum. negative: Dry, Shortness of Breath, Hemoptysis, SOB with Excertion, Pleuritic Pain, Wheezing Cardiovascular: negative: chest pain, palpitations, orthopnea, paroxysmal nocturnal dyspnea, edema, light headedness, other Gastrointestinal: negative: Nausea, Vomiting, Abdominal Pain, Diarrhea, Constipation, Melena, Hematochezia, Other Genitourinary: negative: Dysuria, Frequency, Incontinence, Hematuria, Retention , Other Musculoskeletal: negative: Neck Pain, Shoulder Pain, Arm Pain, Back Pain, Hand Pain, Leg Pain, Foot Pain, Other Skin: negative: Rash, Lesions, Stan, Bruising, Other - Medications/Allergies Allergies/Adverse Reactions: Allergies Allergy/AdvReac Type Severity Reaction Status Date / Time latex Allergy Verified 11/29/18 17:45 Medications: Current Medications Acetaminophen (Tylenol) 650 mg PO Q4H PRN PRN Reason: Headache/Fever/Mild Pain (1-3) Hydrocodone Bitart/Acetaminophen ([place] 5/325) 1 tab PO Q4H PRN PRN Reason: Moderate Pain (4-6) Last Admin: 11/30/18 05:33 Dose: 1 tab Albuterol/Ipratropium (Duoneb) 3 ml NEB [id number] [facility] Last Admin: 11/30/18 07:44 Dose: 3 ml Amlodipine Besylate (Norvasc) 10 mg PO DAILY [facility] Last Admin: 11/30/18 08:28 Dose: 10 mg Artificial Tears (Tears Naturale) 2 drop EA EYE PRN PRN PRN Reason: Dry Eyes Aspirin (Aspirin Chewable) 81 mg PO DAILY [facility] Last Admin: 11/30/18 08:29 Dose: 81 mg Atorvastatin Calcium (Lipitor) 40 mg PO HS [facility] Last Admin: 11/29/18 19:55 Dose: 40 mg Bisacodyl (Dulcolax) 10 mg [place] DAILYPRN PRN PRN Reason: Constipation Calcium Carbonate (Tums) 1,000 mg PO Q4H PRN PRN Reason: Heartburn or Indigestion Duloxetine HCl (Cymbalta) 120 mg PO DAILY [facility] Last Admin: 11/30/18 08:28 Dose: 120 mg Enoxaparin Sodium (Lovenox) 40 mg SC 0900 [facility] Last Admin: 11/30/18 08:29 Dose: 40 mg Furosemide (Lasix) 40 mg SLOW IVP 0600,1400 [facility] Last Admin: 11/30/18 05:34 Dose: 40 mg Gabapentin (Neurontin) 1,200 mg PO QPM [facility] Last Admin: 11/29/18 19:56 Dose: 1,200 mg Guaifenesin (Mucinex) 600 mg PO Q12HR [facility] Last Admin: 11/30/18 08:29 Dose: 600 mg Guaifenesin (Robitussin Sf) 200 mg PO Q4H PRN PRN Reason: Cough Last Admin: 11/30/18 03:47 Dose: 200 mg Hydralazine HCl (Apresoline) 10 mg SLOW IVP Q4H PRN PRN Reason: SBP > 180 and HR < 70 Cefepime HCl 2 gm/ Sodium (Chloride) 100 mls @ 200 mls/hr IVPB 0100,1300 [facility] Last Admin: 11/30/18 00:52 Dose: 100 mls Levothyroxine Sodium (Synthroid) 125 mcg PO 0600 [facility] Last Admin: 11/30/18 05:34 Dose: 125 mcg Loperamide HCl (Imodium) 2 mg PO PRN PRN PRN Reason: Diarrhea/Loose Stools Loratadine (Claritin) 10 mg PO DAILYPRN PRN PRN Reason: Sinus Symptoms Methylprednisolone Sodium Succinate (Solu-Medrol) 20 mg IVP Q8HR [facility] Last Admin: 11/30/18 05:34 Dose: 20 mg Mineral Oil/White Petrolatum (Eucerin Cream) 0 gm TOP BIDPRN PRN PRN Reason: Dry Skin Mometasone Furoate/Formoterol Fumar (Dulera 200 Mcg/5 Mcg Inhaler) 2 puff INH BID-RT [facility] Last Admin: 11/30/18 07:45 Dose: 2 puff Nitroglycerin (Nitrostat) 0.4 mg SL Q5MIN PRN PRN Reason: Chest Pain Ondansetron HCl (Zofran Odt) 4 mg PO Q6H PRN PRN Reason: Nausea/Vomiting Ondansetron HCl (Zofran) 4 mg IVP Q6H PRN PRN Reason: Nausea/Vomiting Pantoprazole Sodium (Protonix) 40 mg PO DAILY [facility] Last Admin: 11/30/18 08:29 Dose: 40 mg Ropinirole HCl (Requip) 5 mg PO QPM [facility] Last Admin: 11/29/18 19:58 Dose: Not Given Saccharomyces Boulardii (Florastor) 250 mg PO DAILY [facility] Last Admin: 11/30/18 08:29 Dose: 250 mg Senna/Docusate Sodium (Senokot S) 2 tab PO BID PRN PRN Reason: Constipation Sodium Chloride ([place] Nasal [place] 0.65%) 0 ml EA NARE QIDPRN PRN PRN Reason: Nasal Congestion Throat Lozenges (Cepastat Lozenges) 1 janeth PO Q2H PRN PRN Reason: Sore Throat Zolpidem Tartrate (Ambien) 5 mg PO HSPRN PRN PRN Reason: Insomnia Last Admin: 11/29/18 21:26 Dose: 5 mg
[2018-11-30] MEDS ORDERED: Hydroxyurea 500 MG CAP PO SCH (17:00)
[2018-11-30] MEDS: Gabapentin 400 MG CAP PO SCH (20:06)
[2018-11-30] MEDS: Atorvastatin Calcium 40 MG TAB PO SCH (20:06)
[2018-11-30] MEDS: rOPINIRole HCl 2 MG TAB PO SCH (20:07)
[2018-11-30] MEDS: Zolpidem Tartrate 5 MG TAB PO PRN (20:08)
[2018-12-01] MEDS: Cefepime 2 GM in Sodium Chloride 0.9% 100 ML IVPB SCH (00:51)
[2018-12-01] MEDS: Furosemide 40 MG/4 ML VIAL SLOW IVP SCH ×2 (05:44→14:16)
[2018-12-01] MEDS: methylPREDNISolone Sod Succ 40 MG VIAL IVP SCH ×3 (05:44→21:00)
[2018-12-01] MEDS: Levothyroxine Sodium 125 MCG TAB PO SCH (05:44)
[2018-12-01] MEDS: Diabetic Tussin 200 MG/10 ML UDCUP PO PRN ×2 (05:49→20:58)
[2018-12-01] MEDS: Mometasone/Formoterol 120 PUFF INHALER INH SCH (07:30)
[2018-12-01] MEDS: DULoxetine 60 MG CAP PO SCH (08:29)
[2018-12-01] MEDS: Hydroxyurea 500 MG CAP PO SCH (08:29)
[2018-12-01] MEDS: guaiFENesin ER 600 MG TAB PO SCH ×2 (08:30→20:58)
[2018-12-01] MEDS: Saccharomyces boulardii 250 MG CAP PO SCH (08:30)
[2018-12-01] MEDS: Aspirin Chewable 81 MG TAB PO SCH (08:30)
[2018-12-01] MEDS: Enoxaparin Sodium 40 MG/0.4 ML SYRINGE SC SCH (08:30)
[2018-12-01] MEDS: Amlodipine 10 MG TAB PO SCH (08:30)
--- NOTE | 2018-12-01 08:43 | RAD ---
2 VIEWS CHEST: Date: 12/01/18 COMPARISON: 11/28/18. HISTORY: Follow-up examination for cough. FINDINGS: Two views of the chest show normal sized cardiomediastinal silhouette. There is no evidence of consol idation, mass, or pleural effusion. Degenerative changes are seen in the spine. IMPRESSION: No evidence of acute cardiopulmonary disease. POS: [facility]
[2018-12-01] MEDS ORDERED: HYDROcodone/Chlorphen Polis 5 ML UDCUP PO PRN (11:52)
--- NOTE | 2018-12-01 12:07 | CON ---
DATE OF CONSULTATION: 12/01/2018 CONSULTING PHYSICIAN: Dr. Newman. REASON FOR CONSULTATION: Cough. TIME SPENT: This encompassed 70 minutes of time, of that time, greater than 50% was spent with the patient and/or the patient's unit in the hospital. HISTORY OF PRESENT ILLNESS: Ms. Carrasco is a 68-year-old female, who was hospitalized earlier this week with a 1-week history of sneezing, cough, congestion, and shortness of breath. She says that she has not improved since hospitalization. She is concerned about cough, which is slightly productive and has not improved. The patient has been seen by my partner, Dr. Goldsmith, in the past. She has had a PFT performed in the past, which showed a restrictive impairment, but no evidence of airway obstruction. In March of 2018, she was in the hospital with an elevated BNP and CT demonstrating fluid overload. She had been started on Breo at that time. PAST MEDICAL HISTORY: 1. She has had episodes of pneumonia in the past requiring hospitalization in [place]. 2. Essential thrombocytosis. 3. Polycythemia vera. 4. Sarcoidosis? 5. Hypertension. 6. Hypothyroidism. 7. Restless legs syndrome. 8. Chronic diastolic heart failure. PAST SURGICAL HISTORY: 1. Left knee surgery. 2. Back surgery. 3. Hysterectomy. 4. Cholecystectomy. MEDICATIONS: Prior to admission; 1. Cymbalta 60 mg twice daily. 2. Amlodipine 10 mg daily. 3. Lasix 80 mg twice daily. 4. Synthroid 125 mcg daily. 5. Abilify 5 mg daily. 6. Lipitor 40 mg daily. 7. Losartan 100 mg daily. 8. Hydroxyurea 500 mg twice daily. 9. Protonix 40 mg daily. 10. Colestipol 1 g daily. 11. Ropinirole 3 mg daily. 12. Gabapentin 400 mg t.i.d. 13. Aspirin 81 mg daily. 14. Flexeril 10 mg daily. 15. Tylenol No. 3 one tab every 6 hours as needed. SOCIAL HISTORY: No previous history of tobacco abuse. Does not consume alcohol. She lives in [place]. REVIEW OF SYSTEMS: Remarkable for cough, fever, and congestion. No hematemesis, melena, hematochezia, hematuria, or dysuria. Remainder of 10-point review of systems negative. ALLERGIES: LASIX. PHYSICAL EXAMINATION: VITAL SIGNS: Temperature 98.4, pulse 68, respirations 15, O2 sat 92% on 2 L, and blood pressure 175/68. HEENT: Pupils are reactive. Sclerae are anicteric. Oropharynx, no lesions. NECK: No adenopathy, JVD, or bruits. LUNGS: She has expiratory crackles and wheezes bilaterally. CARDIAC: S1 and S2 regular without audible murmur, rub, or gallop. ABDOMEN: Soft, obese, nontender, and nondistended. EXTREMITIES: No clubbing, cyanosis, or edema. NEUROLOGIC: Grossly intact throughout. LABORATORY DATA: Sodium 141, potassium 5, chloride 102, CO2 of 30, BUN 44, creatinine 1.2, glucose 147, and uric acid 13.3. BNP was 309. White blood cell count 7.5, hemoglobin 13, hematocrit 44, and platelet count 693 with 90% neutrophils. IMAGING DATA: X-ray shows no mass, effusion, or infiltrate. ASSESSMENT: 1. Bronchopneumonia versus asthmatic bronchitis. 2. Cough secondary to the above. 3. Question of concurrent diastolic heart failure, although not obvious on x-ray. PLAN: 1. Add nebulization treatments with steroid and Brovana. 2. Continue methylprednisolone. 3. Switch cefepime to Levaquin as it would have better atypical coverage, although we may be dealing with a viral infection. 4. Tussionex as needed for breakthrough cough symptoms. 5. I will inform Dr. Goldsmith of the patient's hospitalization. Job ID: [id number]
--- NOTE | 2018-12-01 12:50 | PQF ---
CLINICAL DOCUMENTATION IMPROVEMENT CLARIFICATION FORM: ICD-10 Updated PLEASE DO AN ADDENDUM TO THE PROGRESS NOTE WITH ANY DOCUMENTATION UPDATES OR ADDITIONS AND CARRY THROUGH TO DC SUMMARY. THANK YOU. DATE: 12/01/18 ATTN: DR. PANTOJA Please exercise your independent, professional judgment in responding to the clarification form. Clinical indicators are provided on the bottom of this form for your review Please check appropriate box(s): Conflicting documentation was noted in the Medical Record, please clarify if patient is being treated/monitored for: [ ] BRONCHITIS [ ] PNEUMONIA [ ] Other diagnosis In addition, please specify: Present on Admission (POA): [ ] Yes [ ] No [ ] Unable to determine For continuity of documentation, please document condition throughout progress notes and discharge summary. Thank You. CLINICAL INDICATORS - SIGNS / SYMPTOMS/ LABS H&P: "ACUTE BRONCHITIS / EARLY PNEUMONIA" PROGRESS NOTE 11/29: "ACUTE BRONCHITIS" PULMONARY NOTE 12/01: "BRONCHOPNEUMONIA VERSUS ASTHMATIC BRONCHITIS" NURSES NOTE /: "DIMINISHED BREATH SOUNDS WITH RHONCHI" "MOIST PRODUCTIVE COUGH WITH THIN, CLEAR SPUTUM" RISKS: CHF H/O PAST PNEUMONIA REQUIRING HOSPITALIZATION TREATMENT: PULMONARY CONSULT CHEST XRAY METHYLPREDNISOLONE (ER-PRESENT) NEBS (ER-PRESENT) BROVANA (STARTED 12/01) DULERA (11/28-12/01) IV LEVAQUIN (STARTED 12/01) IV CEFEPIME (11/28-12/01) MUCINEX (11/28-PRESENT) (This form is maintained as a part of the permanent medical record) 2014 [email or web address]. All Rights Reserved NITISH [email or web address] Office: [phone] [facility] CENTEREsvin
[2018-12-01] MEDS ORDERED: Losartan 25 MG TAB PO SCH (14:30)
--- NOTE | 2018-12-01 15:04 | CON ---
DATE OF CONSULTATION: 12/01/2018 PRIMARY COTTON WRINGER: Dr. Robbie Fay. HISTORY OF PRESENT ILLNESS: Ms. Carrasco is a very pleasant 68-year-old white female, who comes to the hospital for shortness of breath and a cough. She was seen by Pulmonary and diagnosed with a bronchopneumonia versus an asthmatic bronchitis and she was placed on nebulizations with antibiotics. She was also in what appeared to be volume overload, so she was started on IV Lasix. Her volume overload was mostly in her abdomen and her lower extremities. She has received 40 IV b.i.d. for the last 2 or 3 days. She has diuresed quite well and from the fluid standpoint, she is doing better. She is still slightly fluid up. She is still getting IV Lasix today. She is off oxygen if continues to cough. Denies any chest pain, tightness, pressure. Her shortness of breath is closer to normal. PAST MEDICAL HISTORY: 1. Essential thrombocytosis. 2. Polycythemia vera. 3. Questionable history of sarcoidosis. She has been told she may have pulmonary sarcoidosis. She has never been told she has cardiac sarcoidosis. 4. Hypertension. 5. Hypothyroidism. 6. Restless legs syndrome. 7. Chronic diastolic heart failure. PAST SURGICAL HISTORY: 1. Left knee surgery. 2. Back surgery. 3. Hysterectomy. 4. Cholecystectomy. 5. She tells me she might have had fat pad biopsy in the past in [place] and she was told everything looked fine. OUTPATIENT MEDICATIONS: Include; 1. Cymbalta 60 mg twice a day. 2. Amlodipine 10 mg a day. 3. Lasix 80 mg b.i.d. 4. Synthroid 125 mcg a day. 5. Abilify 5 mg a day. 6. Lipitor 40 at bedtime. 7. Losartan 100 mg a day p.r.n. 8. Hydroxyurea 500 mg b.i.d. 9. Protonix 40 mg a day. 10. Colestipol. 11. Ropinirole. 12. Gabapentin. 13. Aspirin 81 a day. 14. Flexeril. 15. Tylenol No. 3 p.r.n. pain. ALLERGIES: LATEX. SOCIAL HISTORY: No alcohol, tobacco, or drugs. Currently moved to [place] from [place] recently. FAMILY HISTORY: Noncontributory. REVIEW OF SYSTEMS: A 12-point review of systems was done and was found to be negative unless stated in the history of present illness. Positive for cough, fever, and congestion. PHYSICAL EXAMINATION: VITAL SIGNS: Temperature 98.2, pulse 63, respiratory rate 18, saturating 93% on room air, blood pressure 181/70. Trending on her blood pressures, they have been in the 160s to 180s. GENERAL: Awake, alert, and oriented x3, in no distress. HEENT: Normocephalic and atraumatic. NECK: Supple. LUNGS: Have mild crackles at the bases. CARDIOVASCULAR: S1 and S2. No S3 or S4. No murmurs. ABDOMEN: Soft. Positive bowel sounds. EXTREMITIES: Trace edema. SKIN: Warm and dry. LABORATORY DATA: Laboratory work was reviewed. CBC showed a hemoglobin of 13.5, platelets of 693. Chemistries were reviewed. Creatinine is 1.37 down to 1.27 two days ago. Glucose has been in the 140s. Uric acid was 13.3. BNP was 309. TSH was normal. Troponin was normal. EKG was reviewed. Chest x-ray was reviewed. ASSESSMENT: 1. Acute on chronic diastolic heart failure. 2. Right ventricular dysfunction from pulmonary issue. 3. Possible bronchopneumonia versus asthmatic bronchitis per Pulmonary. 4. Hypertension. PLAN: 1. We would continue IV Lasix today, probably switch to p.o. tomorrow as she is close to euvolemia. 2. Her biggest issue right now seems to be her pulmonary issues, which are most likely exacerbated with some level of right-sided heart failure and she accumulated fluid on her abdomen and extremities. She is questioning whether the IV Lasix doses are adequate as she has been placed on IV Lasix drip in the past, however, she has diuresed quite well and has been on this for about 3 days now. I would continue current Lasix dose for now. Would recheck creatinine to make sure that it is not already on the up side. 3. We would repeat an echocardiogram as the last one was back in March of last year. 4. We will restart her home dose of losartan at 100 mg a day. 5. Continue to monitor blood pressure closely. We will hold off on any beta blockers at this time given her lung issues. 6. Further recommendations per Dr. Fay, the primary marketing copywriter in the morning. Job ID: [id number]
--- NOTE | 2018-12-01 17:19 | PDOC.PN ---
- Subjective Encounter Start Date: 12/01/18 Encounter Start Time: 09:40 Pt seen for followup re: bronchopneumonia. c/o cough, sputum. - Objective Resuscitation Status - Order Detail: 11/28/18 11:14 Resuscitation Status Routine Resuscitation Status: FULL: Full Resuscitation MAR Reviewed: Yes Vital Signs & Weight: Vital Signs (12 hours) Temp Pulse Resp BP BP Pulse Ox 12/01/18 14:29 72 18 12/01/18 12:00 98.2 F 63 18 181/70 H 93 L 12/01/18 10:44 68 15 12/01/18 08:30 68 12/01/18 07:58 98.4 F 68 18 175/68 H 92 L 12/01/18 07:28 68 15 Weight Weight 231 lb 12.8 oz I&O: 11/30/18 12/01/18 12/02/18 06:59 06:59 06:59 Intake Total 230 960 240 Output Total 1900 Balance -1670 960 240 Result Diagrams: 11/29/18 03:28 11/29/18 03:28 Additional Labs: Labs reviewed by me Phys Exam - Physical Examination Obese HEENT: moist MMs Neck: supple Respiratory: wheezing present Cardiovascular: RRR Gastrointestinal: soft Neurological: moves all 4 limbs Psychiatric: normal affect Dx/Plan (1) Bronchopneumonia Code(s): J18.0 - BRONCHOPNEUMONIA, UNSPECIFIED ORGANISM Status: Acute Comment: continue oxygen, steroids, antibiotics as below and bronchodilators (2) Acute on chronic diastolic ACC/AHA stage C congestive heart failure Code(s): I50.33 - ACUTE ON CHRONIC DIASTOLIC (CONGESTIVE) HEART FAILURE Status : Acute Comment: NYHA Class 3. Continue furosemide. (3) GERD (gastroesophageal reflux disease) Code(s): K21.9 - GASTRO-ESOPHAGEAL REFLUX DISEASE WITHOUT ESOPHAGITIS Status: Chronic Comment: stable (4) Hypertension Code(s): I10 - ESSENTIAL (PRIMARY) HYPERTENSION Status: Chronic Comment: monitor vital signs, titrate antihypertensives as needed. (5) Hypothyroidism Code(s): E03.9 - HYPOTHYROIDISM, UNSPECIFIED Status: Chronic - Plan * . Review of Systems - Review of Systems Constitutional: negative: fever, chills, sweats, weakness, malaise Respiratory: Cough, Sputum. negative: Dry, Shortness of Breath, Hemoptysis, SOB with Excertion, Pleuritic Pain, Wheezing Cardiovascular: negative: chest pain, palpitations, orthopnea, paroxysmal nocturnal dyspnea, edema, light headedness - Medications/Allergies Allergies/Adverse Reactions: Allergies Allergy/AdvReac Type Severity Reaction Status Date / Time latex Allergy Verified 11/29/18 17:45 Medications: Current Medications Acetaminophen (Tylenol) 650 mg PO Q4H PRN PRN Reason: Headache/Fever/Mild Pain (1-3) Hydrocodone Bitart/Acetaminophen ([place] 5/325) 1 tab PO Q4H PRN PRN Reason: Moderate Pain (4-6) Last Admin: 11/30/18 17:41 Dose: 1 tab Albuterol/Ipratropium (Duoneb) 3 ml NEB [id number] [facility] Last Admin: 12/01/18 14:29 Dose: 3 ml Amlodipine Besylate (Norvasc) 10 mg PO DAILY [facility] Last Admin: 12/01/18 08:30 Dose: 10 mg Arformoterol Tartrate (Brovana) 15 mcg NEB BID-RT [facility] Artificial Tears (Tears Naturale) 2 drop EA EYE PRN PRN PRN Reason: Dry Eyes Aspirin (Aspirin Chewable) 81 mg PO DAILY [facility] Last Admin: 12/01/18 08:30 Dose: 81 mg Atorvastatin Calcium (Lipitor) 40 mg PO HS [facility] Last Admin: 11/30/18 20:06 Dose: 40 mg Bisacodyl (Dulcolax) 10 mg NM DAILYPRN PRN PRN Reason: Constipation Budesonide (Pulmicort Neb Solution) 0.5 mg INH BID-RT [facility] Calcium Carbonate (Tums) 1,000 mg PO Q4H PRN PRN Reason: Heartburn or Indigestion Chlorphenir/Hydrocodone Polistirex (Tussionex) 5 ml PO Q12H PRN PRN Reason: Cough Duloxetine HCl (Cymbalta) 120 mg PO DAILY [facility] Last Admin: 12/01/18 08:29 Dose: 120 mg Enoxaparin Sodium (Lovenox) 40 mg SC 0900 [facility] Last Admin: 12/01/18 08:30 Dose: 40 mg Furosemide (Lasix) 40 mg SLOW IVP 0600,1400 [facility] Last Admin: 12/01/18 14:16 Dose: 40 mg Gabapentin (Neurontin) 1,200 mg PO QPM [facility] Last Admin: 11/30/18 20:06 Dose: 1,200 mg Guaifenesin (Mucinex) 600 mg PO Q12HR [facility] Last Admin: 12/01/18 08:30 Dose: 600 mg Guaifenesin (Robitussin Sf) 200 mg PO Q4H PRN PRN Reason: Cough Last Admin: 12/01/18 05:49 Dose: 200 mg Hydralazine HCl (Apresoline) 10 mg SLOW IVP Q4H PRN PRN Reason: SBP > 180 and HR < 70 Hydroxyurea (Hydrea) 1,500 mg PO QAM [facility] Last Admin: 12/01/18 08:29 Dose: 1,500 mg Levofloxacin 500 mg/ Device 100 mls @ 100 mls/hr IVPB Q24HR [facility] Last Admin: 12/01/18 14:16 Dose: 100 mls Levothyroxine Sodium (Synthroid) 125 mcg PO 0600 [facility] Last Admin: 12/01/18 05:44 Dose: 125 mcg Loperamide HCl (Imodium) 2 mg PO PRN PRN PRN Reason: Diarrhea/Loose Stools Loratadine (Claritin) 10 mg PO DAILYPRN PRN PRN Reason: Sinus Symptoms Losartan Potassium (Cozaar) 100 mg PO DAILY [facility] Methylprednisolone Sodium Succinate (Solu-Medrol) 20 mg IVP Q8HR [facility] Last Admin: 12/01/18 14:16 Dose: 20 mg Mineral Oil/White Petrolatum (Eucerin Cream) 0 gm TOP BIDPRN PRN PRN Reason: Dry Skin Nitroglycerin (Nitrostat) 0.4 mg SL Q5MIN PRN PRN Reason: Chest Pain Ondansetron HCl (Zofran Odt) 4 mg PO Q6H PRN PRN Reason: Nausea/Vomiting Ondansetron HCl (Zofran) 4 mg IVP Q6H PRN PRN Reason: Nausea/Vomiting Pantoprazole Sodium (Protonix) 40 mg PO DAILY [facility] Last Admin: 12/01/18 08:31 Dose: 40 mg Ropinirole HCl (Requip) 5 mg PO QPM [facility] Last Admin: 11/30/18 20:07 Dose: 5 mg Saccharomyces Boulardii (Florastor) 250 mg PO DAILY [facility] Last Admin: 12/01/18 08:30 Dose: 250 mg Senna/Docusate Sodium (Senokot S) 2 tab PO BID PRN PRN Reason: Constipation Sodium Chloride ([place] Nasal [place] 0.65%) 0 ml EA NARE QIDPRN PRN PRN Reason: Nasal Congestion Throat Lozenges (Cepastat Lozenges) 1 janeth PO Q2H PRN PRN Reason: Sore Throat Zolpidem Tartrate (Ambien) 5 mg PO HSPRN PRN PRN Reason: Insomnia Last Admin: 11/30/18 20:08 Dose: 5 mg
[2018-12-01] MEDS: Arformoterol 15 MCG/2 ML NEB NEB SCH (18:16)
[2018-12-01] MEDS: Budesonide 0.5 MG/2 ML NEB INH SCH (18:16)
[2018-12-01] MEDS: Gabapentin 400 MG CAP PO SCH (20:57)
[2018-12-01] MEDS: Atorvastatin Calcium 40 MG TAB PO SCH (20:57)
[2018-12-01] MEDS: Zolpidem Tartrate 5 MG TAB PO PRN (20:58)
[2018-12-01] MEDS: rOPINIRole HCl 2 MG TAB PO SCH (20:58)
[2018-12-01] MEDS: HYDROcodone/Acetaminophen 5/325 mg Tablet PO PRN (20:59)
[2018-12-02] MEDS: HYDROcodone/Acetaminophen 5/325 mg Tablet PO PRN ×3 (01:31→21:25)
[2018-12-02] MEDS: Furosemide 40 MG/4 ML VIAL SLOW IVP SCH ×2 (06:17→13:27)
[2018-12-02] MEDS: Levothyroxine Sodium 125 MCG TAB PO SCH (06:17)
[2018-12-02] MEDS: methylPREDNISolone Sod Succ 40 MG VIAL IVP SCH ×3 (06:17→21:28)
[2018-12-02] MEDS: Budesonide 0.5 MG/2 ML NEB INH SCH ×2 (06:50→20:06)
[2018-12-02] MEDS: Arformoterol 15 MCG/2 ML NEB NEB SCH ×2 (06:59→20:06)
[2018-12-02 07:29] LABS: #Lymphocytes 0.7 thou/uL (1.20-3.40); #Monocytes 0.1 thou/uL (0.11-0.59); #Neutrophils 7.8 thou/uL (1.40-6.50); %Basophils 0.4 % (0.0-1.0); %Eosinophils 0.4 % (0.0-10.0); %Lymphocytes 8.4 % (21.0-51.0); %Monocytes 0.9 % (0.0-10.0); %Neutrophils 89.9 % (42.0-75.0); Hemoglobin 14.1 g/dL (12.0-16.0); Mean Corpuscular HGB CONC 30.1 g/dL (32.0-36.0); Mean Corpuscular Hemoglobin 30.2 pg (27.0-31.0); Mean Platelet Volume 8.1 fL (7.4-10.4); Platelet Count 770 thou/uL (130-400); RBC Distribution Width 20.7 % (11.5-14.5); Red Blood Cell (RBC) Count 4.67 mill/uL (4.20-5.40); White Blood Cell (WBC) Count 8.7 thou/uL (4.8-10.8)
[2018-12-02 07:52] LABS: Anion Gap 17 mmol/L (10-20); BUN (Urea Nitrogen) 49 mg/dL (9.8-20.1); Calc. Creatinine Clearance 71 mL/min (70-130); Calcium 9.2 mg/dL (7.8-10.44); Carbon Dioxide 28 mmol/L (23-31); Chloride 101 mmol/L (98-107); Estimated GFR-MDRD 42; Glucose 88 mg/dL (80-115); Potassium 4.5 mmol/L (3.5-5.1); Sodium 141 mmol/L (136-145)
[2018-12-02] MEDS: Losartan 25 MG TAB PO SCH (08:47)
[2018-12-02] MEDS: Amlodipine 10 MG TAB PO SCH (08:47)
[2018-12-02] MEDS: DULoxetine 60 MG CAP PO SCH (08:48)
[2018-12-02] MEDS: guaiFENesin ER 600 MG TAB PO SCH ×2 (08:48→21:28)
[2018-12-02] MEDS: Saccharomyces boulardii 250 MG CAP PO SCH (08:48)
[2018-12-02] MEDS: Hydroxyurea 500 MG CAP PO SCH (08:48)
[2018-12-02] MEDS: Aspirin Chewable 81 MG TAB PO SCH (08:48)
[2018-12-02] MEDS: Enoxaparin Sodium 40 MG/0.4 ML SYRINGE SC SCH (08:49)
--- NOTE | 2018-12-02 09:17 | PRG ---
DATE OF SERVICE: 12/02/2018 SUBJECTIVE: This morning female. She is still got a significant cough, which is nonproductive. No fever or chills. Still has wheezing. OBJECTIVE: VITAL SIGNS: Sats are 99% on supplemental oxygen. Respirations 18, temperature 98, pulse 71, blood pressure is 157/81. CHEST: Bilateral rhonchi and wheezing. CARDIAC: Normal S1, S2. No gallops . LABORATORY DATA: Creatinine 1.27, stable. White count is normal. Chest x-ray yesterday shows no acute infiltrates. IMPRESSION: Asthmatic bronchitis, persistent cough. PLAN: She is on steroids, antibiotics and neb treatments. We will probably start deescalating IV antibiotics tomorrow. Otherwise, continue supportive care. We will follow. Job ID: [id number]
[2018-12-02] MEDS: Benzonatate 100 MG CAP PO SCH ×3 (10:02→21:27)
[2018-12-02] MEDS ORDERED: Bisacodyl 5 MG TAB PO PRN (11:13)
[2018-12-02] MEDS ORDERED: Bisacodyl 5 MG TAB PO SCH (11:30)
--- NOTE | 2018-12-02 15:24 | PDOC.PN ---
- Subjective Encounter Start Date: 12/02/18 Encounter Start Time: 09:40 Pt seen for followup re: bronchopneumonia. Feels better. No shortness of [place]. - Objective Resuscitation Status - Order Detail: 11/28/18 11:14 Resuscitation Status Routine Resuscitation Status: FULL: Full Resuscitation MAR Reviewed: Yes Vital Signs & Weight: Vital Signs (12 hours) Temp Pulse Resp BP BP Pulse Ox 12/02/18 13:46 74 18 92 L 12/02/18 12:00 98.3 F 62 14 158/66 H 93 L 12/02/18 09:36 71 18 92 L 12/02/18 08:47 71 157/81 H 12/02/18 08:00 98.8 F 71 18 157/81 H 91 L 12/02/18 06:59 70 20 90 L 12/02/18 06:50 70 20 90 L Weight Weight 231 lb 12.8 oz I&O: 12/01/18 12/02/18 12/03/18 06:59 06:59 06:59 Intake Total 960 790 Balance 960 790 Result Diagrams: 12/02/18 07:17 12/02/18 07:17 Additional Labs: Labs reviewed by me Phys Exam - Physical Examination Constitutional: NAD HEENT: moist MMs Neck: supple Respiratory: wheezing present Cardiovascular: RRR Gastrointestinal: soft Neurological: moves all 4 limbs Psychiatric: normal affect Dx/Plan (1) Bronchopneumonia Code(s): J18.0 - BRONCHOPNEUMONIA, UNSPECIFIED ORGANISM Status: Acute Comment: Improving, continue oxygen, steroids, antibiotics and bronchodilators (2) Acute on chronic diastolic ACC/AHA stage C congestive heart failure Code(s): I50.33 - ACUTE ON CHRONIC DIASTOLIC (CONGESTIVE) HEART FAILURE Status : Acute Comment: NYHA Class 3. Improved, continue furosemide. (3) GERD (gastroesophageal reflux disease) Code(s): K21.9 - GASTRO-ESOPHAGEAL REFLUX DISEASE WITHOUT ESOPHAGITIS Status: Chronic Comment: stable (4) Hypertension Code(s): I10 - ESSENTIAL (PRIMARY) HYPERTENSION Status: Chronic Comment: titrate antihypertensives as needed. - Plan * . Review of Systems - Review of Systems Respiratory: Cough, Sputum. negative: Dry, Shortness of Breath, Hemoptysis, SOB with Excertion, Pleuritic Pain, Wheezing Cardiovascular: negative: chest pain, palpitations, orthopnea, paroxysmal nocturnal dyspnea, edema, light headedness - Medications/Allergies Allergies/Adverse Reactions: Allergies Allergy/AdvReac Type Severity Reaction Status Date / Time latex Allergy Verified 11/29/18 17:45 Medications: Current Medications Acetaminophen (Tylenol) 650 mg PO Q4H PRN PRN Reason: Headache/Fever/Mild Pain (1-3) Hydrocodone Bitart/Acetaminophen ([place] 5/325) 1 tab PO Q4H PRN PRN Reason: Moderate Pain (4-6) Last Admin: 12/02/18 13:25 Dose: 1 tab Albuterol/Ipratropium (Duoneb) 3 ml NEB [id number] [facility] Last Admin: 12/02/18 13:46 Dose: 3 ml Amlodipine Besylate (Norvasc) 10 mg PO DAILY [facility] Last Admin: 12/02/18 08:47 Dose: 10 mg Arformoterol Tartrate (Brovana) 15 mcg NEB BID-RT [facility] Last Admin: 12/02/18 06:59 Dose: 15 mcg Artificial Tears (Tears Naturale) 2 drop EA EYE PRN PRN PRN Reason: Dry Eyes Aspirin (Aspirin Chewable) 81 mg PO DAILY [facility] Last Admin: 12/02/18 08:48 Dose: 81 mg Atorvastatin Calcium (Lipitor) 40 mg PO HS [facility] Last Admin: 12/01/18 20:57 Dose: 40 mg Benzonatate (Tessalon) 100 mg PO TID [facility] Last Admin: 12/02/18 10:02 Dose: 100 mg Bisacodyl (Dulcolax) 10 mg MA DAILYPRN PRN PRN Reason: Constipation Bisacodyl (Dulcolax) 10 mg PO DAILYPRN PRN PRN Reason: Constipation Budesonide (Pulmicort Neb Solution) 0.5 mg INH BID-RT [facility] Last Admin: 12/02/18 06:50 Dose: 0.5 mg Calcium Carbonate (Tums) 1,000 mg PO Q4H PRN PRN Reason: Heartburn or Indigestion Chlorphenir/Hydrocodone Polistirex (Tussionex) 5 ml PO Q12H PRN PRN Reason: Cough Duloxetine HCl (Cymbalta) 120 mg PO DAILY [facility] Last Admin: 12/02/18 08:48 Dose: 120 mg Enoxaparin Sodium (Lovenox) 40 mg SC 0900 [facility] Last Admin: 12/02/18 08:49 Dose: 40 mg Furosemide (Lasix) 40 mg SLOW IVP 0600,1400 [facility] Last Admin: 12/02/18 13:27 Dose: 40 mg Gabapentin (Neurontin) 1,200 mg PO QPM [facility] Last Admin: 12/01/18 20:57 Dose: 1,200 mg Guaifenesin (Mucinex) 600 mg PO Q12HR [facility] Last Admin: 12/02/18 08:48 Dose: 600 mg Guaifenesin (Robitussin Sf) 200 mg PO Q4H PRN PRN Reason: Cough Last Admin: 12/01/18 20:58 Dose: 200 mg Hydralazine HCl (Apresoline) 10 mg SLOW IVP Q4H PRN PRN Reason: SBP > 180 and HR < 70 Hydroxyurea (Hydrea) 1,500 mg PO QAM [facility] Last Admin: 12/02/18 08:48 Dose: 1,500 mg Levofloxacin 500 mg/ Device 100 mls @ 100 mls/hr IVPB Q24HR [facility] Last Admin: 12/02/18 12:35 Dose: 100 mls Levothyroxine Sodium (Synthroid) 125 mcg PO 0600 [facility] Last Admin: 12/02/18 06:17 Dose: 125 mcg Loperamide HCl (Imodium) 2 mg PO PRN PRN PRN Reason: Diarrhea/Loose Stools Loratadine (Claritin) 10 mg PO DAILYPRN PRN PRN Reason: Sinus Symptoms Losartan Potassium (Cozaar) 100 mg PO DAILY [facility] Last Admin: 12/02/18 08:47 Dose: 100 mg Methylprednisolone Sodium Succinate (Solu-Medrol) 20 mg IVP Q8HR [facility] Last Admin: 12/02/18 13:27 Dose: 20 mg Mineral Oil/White Petrolatum (Eucerin Cream) 0 gm TOP BIDPRN PRN PRN Reason: Dry Skin Nitroglycerin (Nitrostat) 0.4 mg SL Q5MIN PRN PRN Reason: Chest Pain Ondansetron HCl (Zofran Odt) 4 mg PO Q6H PRN PRN Reason: Nausea/Vomiting Ondansetron HCl (Zofran) 4 mg IVP Q6H PRN PRN Reason: Nausea/Vomiting Pantoprazole Sodium (Protonix) 40 mg PO DAILY [facility] Last Admin: 12/02/18 08:48 Dose: 40 mg Ropinirole HCl (Requip) 5 mg PO QPM [facility] Last Admin: 12/01/18 20:58 Dose: Not Given Saccharomyces Boulardii (Florastor) 250 mg PO DAILY [facility] Last Admin: 12/02/18 08:48 Dose: 250 mg Senna/Docusate Sodium (Senokot S) 2 tab PO BID PRN PRN Reason: Constipation Sodium Chloride ([place] Nasal [place] 0.65%) 0 ml EA NARE QIDPRN PRN PRN Reason: Nasal Congestion Sodium Chloride (Flush - Normal Saline) 10 ml IVF Q12HR [facility] Sodium Chloride (Flush - Normal Saline) 10 ml IVF PRN PRN PRN Reason: Saline Flush Throat Lozenges (Cepastat Lozenges) 1 janeth PO Q2H PRN PRN Reason: Sore Throat Zolpidem Tartrate (Ambien) 5 mg PO HSPRN PRN PRN Reason: Insomnia Last Admin: 12/01/18 20:58 Dose: 5 mg
[2018-12-02] MEDS: Gabapentin 400 MG CAP PO SCH (21:27)
[2018-12-02] MEDS: Atorvastatin Calcium 40 MG TAB PO SCH (21:27)
[2018-12-02] MEDS: rOPINIRole HCl 2 MG TAB PO SCH (21:52)
[2018-12-03] MEDS: Zolpidem Tartrate 5 MG TAB PO PRN (00:16)
[2018-12-03] MEDS: HYDROcodone/Acetaminophen 5/325 mg Tablet PO PRN (04:42)
[2018-12-03] MEDS: Levothyroxine Sodium 125 MCG TAB PO SCH (05:50)
[2018-12-03] MEDS: methylPREDNISolone Sod Succ 40 MG VIAL IVP SCH (05:50)
[2018-12-03 07:02] LABS: #Lymphocytes 0.8 thou/uL (1.20-3.40); #Monocytes 0.2 thou/uL (0.11-0.59); #Neutrophils 9.6 thou/uL (1.40-6.50); %Basophils 0.2 % (0.0-1.0); %Eosinophils 0.3 % (0.0-10.0); %Lymphocytes 7.7 % (21.0-51.0); %Monocytes 2.1 % (0.0-10.0); %Neutrophils 89.8 % (42.0-75.0); Mean Corpuscular HGB CONC 30.1 g/dL (32.0-36.0); Mean Corpuscular Volume 99.8 fL (78.0-98.0); Mean Platelet Volume 8.2 fL (7.4-10.4); Platelet Count 850 thou/uL (130-400); RBC Distribution Width 20.4 % (11.5-14.5); Red Blood Cell (RBC) Count 4.66 mill/uL (4.20-5.40); White Blood Cell (WBC) Count 10.7 thou/uL (4.8-10.8)
[2018-12-03 07:08] LABS: Anion Gap 16 mmol/L (10-20); BUN (Urea Nitrogen) 45 mg/dL (9.8-20.1); Calc. Creatinine Clearance 83 mL/min (70-130); Calcium 9.3 mg/dL (7.8-10.44); Carbon Dioxide 27 mmol/L (23-31); Chloride 103 mmol/L (98-107); Estimated GFR-MDRD 51; Glucose 109 mg/dL (80-115); Potassium 4.6 mmol/L (3.5-5.1); Sodium 141 mmol/L (136-145)
[2018-12-03] MEDS: Budesonide 0.5 MG/2 ML NEB INH SCH (07:09)
[2018-12-03] MEDS: Arformoterol 15 MCG/2 ML NEB NEB SCH (07:30)
[2018-12-03] MEDS: Losartan 25 MG TAB PO SCH (09:00)
[2018-12-03] MEDS ORDERED: Furosemide 80 MG TAB PO SCH (09:00)
[2018-12-03] MEDS: DULoxetine 60 MG CAP PO SCH (09:00)
[2018-12-03] MEDS: Saccharomyces boulardii 250 MG CAP PO SCH (09:01)
[2018-12-03] MEDS: Benzonatate 100 MG CAP PO SCH (09:01)
[2018-12-03] MEDS: Enoxaparin Sodium 40 MG/0.4 ML SYRINGE SC SCH (09:01)
[2018-12-03] MEDS: guaiFENesin ER 600 MG TAB PO SCH (09:01)
[2018-12-03] MEDS: Aspirin Chewable 81 MG TAB PO SCH (09:01)
[2018-12-03] MEDS: Amlodipine 10 MG TAB PO SCH (09:02)
[2018-12-03] MEDS: Hydroxyurea 500 MG CAP PO SCH (09:05)
--- NOTE | 2018-12-03 09:26 | PRG ---
DATE OF SERVICE: 12/03/2018 SUBJECTIVE: Ms. Carrasco is a 68-year-old female, who is much better this morning. Less cough. Less shortness of breath. Less wheezing. She would like to go home. OBJECTIVE: VITAL SIGNS: Blood pressure is 145/67, sats are 92% on 2 L, respiratory rate 18, and temperature 97. CHEST: Minimal wheezing. CARDIAC: Normal S1 and S2. No gallops. ABDOMEN: No masses. IMPRESSION: Asthmatic bronchitis, improved. PLAN: She can be discharged home on tapering dose of steroids, antibiotics, cough drops. She can see Dr. Goldsmith in the office next several weeks. Job ID: [id number]
[2018-12-03 14:59] VITALS: BP 144/80; TEMP 98.5
--- NOTE | 2018-12-03 18:49 | PDOC.PN ---
- Subjective Encounter Start Date: 12/03/18 Encounter Start Time: 18:47 (late entry) Subjective: feels well and eager to go home. -: no chest pain or sob - Objective Resuscitation Status - Order Detail: 11/28/18 11:14 Resuscitation Status Routine Resuscitation Status: FULL: Full Resuscitation MAR Reviewed: Yes Vital Signs & Weight: Vital Signs (12 hours) Temp Pulse Resp BP BP Pulse Ox 12/03/18 13:00 98.5 F 60 16 144/80 H 93 L 12/03/18 10:27 72 16 90 L 12/03/18 09:02 66 145/67 H 12/03/18 08:00 92 L 12/03/18 07:39 97.5 F L 66 18 145/67 H 92 L 12/03/18 07:12 61 18 92 L 12/03/18 07:09 61 18 93 L Weight Weight 228 lb 8 oz I&O: 12/02/18 12/03/18 12/04/18 06:59 06:59 06:59 Intake Total 790 960 Balance 790 960 Result Diagrams: 12/03/18 06:17 12/03/18 06:17 Phys Exam - Physical Examination Constitutional: NAD HEENT: PERRLA, moist MMs, sclera anicteric, oral pharynx no lesions Neck: no nodes, no JVD, supple, full ROM Respiratory: no wheezing, no rales, no rhonchi, clear to auscultation bilateral Cardiovascular: RRR, no significant murmur, no rub Gastrointestinal: soft, non-tender, no distention, positive bowel sounds Musculoskeletal: no edema, pulses present Neurological: non-focal, normal sensation, moves all 4 limbs Psychiatric: normal affect, A&O x 3 Dx/Plan (1) Acute on chronic diastolic ACC/AHA stage C congestive heart failure Code(s): I50.33 - ACUTE ON CHRONIC DIASTOLIC (CONGESTIVE) HEART FAILURE Status : Acute Comment: NYHA Class 3. Improved, continue furosemide. (2) Bronchopneumonia Code(s): J18.0 - BRONCHOPNEUMONIA, UNSPECIFIED ORGANISM Status: Acute Comment: Improving, continue oxygen, steroids, antibiotics and bronchodilators (3) Anxiety and depression Code(s): F41.9 - ANXIETY DISORDER, UNSPECIFIED; F32.9 - MAJOR DEPRESSIVE DISORDER, SINGLE EPISODE, UNSPECIFIED Status: Chronic (4) CKD (chronic kidney disease) stage 3, GFR 30-59 ml/min Code(s): N18.3 - CHRONIC KIDNEY DISEASE, STAGE 3 (MODERATE) Status: Chronic (5) Dyslipidemia Code(s): E78.5 - HYPERLIPIDEMIA, UNSPECIFIED Status: Chronic Comment: continue statin (6) GERD (gastroesophageal reflux disease) Code(s): K21.9 - GASTRO-ESOPHAGEAL REFLUX DISEASE WITHOUT ESOPHAGITIS Status: Chronic Comment: stable (7) Hypertension Code(s): I10 - ESSENTIAL (PRIMARY) HYPERTENSION Status: Chronic Comment: titrate antihypertensives as needed. (8) Hypothyroidism Code(s): E03.9 - HYPOTHYROIDISM, UNSPECIFIED Status: Chronic - Plan DVT proph w/SCDs DC home. HD stable. -: cleraed by cardiology & PCCM -: meds reconciled. -: see summary for details * .
[2018-12-03] MEDS ORDERED: Doxycycline 100 MG CAP PO SCH (21:00)
[2018-12-04] MEDS ORDERED: predniSONE 20 MG TAB PO SCH (08:00)
--- NOTE | 2018-12-04 20:32 | EKG ---
Test Reason : SOB Blood Pressure : / mmHG Vent. Rate : 069 BPM Atrial Rate : 069 BPM P-R Int : 164 ms QRS Dur : 104 ms QT Int : 432 ms P-R-T Axes : 085 -45 035 degrees QTc Int : 462 ms Sinus rhythm with Premature supraventricular complexes Pulmonary disease pattern Left anterior fascicular block Nonspecific T wave abnormality Abnormal ECG Confirmed by DODIE NERI MD ([id number]), offline editor GUIDO TREVINO ([id number]) on 12/04/2018 8:32:32 PM Referred By: Confirmed By:DODIE NERI MD
== END 2018-12-03 13:51 | disposition home or self-care (01) | DRG 291 ==
LOC: ERS 07:13 → ERHOLD 09:37 → T4-B 11-29 14:17
PROVIDERS: ADMIT Internal Medicine; ATTEND Internal Medicine
DX: I11.0 Hypertensive heart disease with heart failure (principal); J18.0 Bronchopneumonia, unspecified organism; C94.6 Myelodysplastic disease, not elsewhere classified; I50.33 Acute on chronic diastolic (congestive) heart failure; D45 Polycythemia vera; E03.9 Hypothyroidism, unspecified; G25.81 Restless legs syndrome; D86.0 Sarcoidosis of lung; D47.3 Essential (hemorrhagic) thrombocythemia; K21.9 Gastro-esophageal reflux disease without esophagitis; E78.5 Hyperlipidemia, unspecified; F41.9 Anxiety disorder, unspecified; F32.9 Major depressive disorder, single episode, unspecified; Z79.899 Other long term (current) drug therapy; Z91.040 Latex allergy status; Z87.01 Personal history of pneumonia (recurrent); Z96.652 Presence of left artificial knee joint; Z95.5 Presence of coronary angioplasty implant and graft; Z82.49 Family history of ischemic heart disease and other diseases of the circulatory system
CPT/HCPCS: 36415; 71045; 71046; 80048; 80053; 83735; 83880; 84443; 84484; 84550; 85025; 93005; 93306; 93798; 94640; 94760; 96374; 96375; J0692; J1650; J1940; J1956; J2920; J7050; J7620; J7626

== ENCOUNTER 2021-08-04 11:27 | Inpatient (IN) | payer MEDICARE ==
[2021-08-04 12:23] LABS: Bacteria/HPF 3+ HPF (None Seen); Bilirubin Negative (Negative); Blood, Urine Trace (Negative); Glucose, Urine (Dipstick) Normal (Negative); Ketone, Urine Negative (Negative); Leukocyte Negative Leu/uL (Negative); Nitrite Negative (Negative); Protein, Urine (Dipstick) 100 mg/dL (Neg-Trace); Specific Gravity, Urine 1.014 (1.002-1.036); Urobilinogen Normal mg/dL (Less than 2)
[2021-08-04 12:28] LABS: INR-International Normal Ratio 1.2; PTT 31.3 sec (22.9-36.1)
[2021-08-04] MEDS ORDERED: Cefepime 2 GM VIAL ONE (12:30)
[2021-08-04] MEDS ORDERED: Furosemide 20 MG/2 ML VIAL ONE (12:30)
[2021-08-04 12:38] LABS: ALT (SGPT) 13 U/L (8-55); AST (SGOT) 19 U/L (5-34); Alkaline Phosphatase 61 U/L (40-110); Anion Gap 19 mmol/L (10-20); Bilirubin, Total 0.8 mg/dL (0.2-1.2); Calc. Creatinine Clearance 0 mL/min (70-130); Calcium 8.7 mg/dL (7.8-10.44); Carbon Dioxide 28 mmol/L (23-31); Chloride 97 mmol/L (98-107); Globulin 2.2 g/dL (2.4-3.5); Glucose 119 mg/dL (80-115); Lipase 43 U/L (8-78); Protein, Total 6.2 g/dL (5.8-8.1); Sodium 139 mmol/L (136-145)
[2021-08-04 12:45] LABS: Anisocytosis SLIGHT = 6-15 cells (100X) (0-5/hpf); Band 12 % (5-11); Eosinophils 3 % (0-10); Hemoglobin 9.5 g/dL (12.0-16.0); Lymphocytes 3 % (21-51); MDiff Complete? YES; Macrocytosis SLIGHT = 6-15 cells (100X) (0-5/hpf); Mean Corpuscular HGB CONC 32.1 g/dL (32.0-36.0); Mean Corpuscular Hemoglobin 33.8 pg (27.0-31.0); Mean Platelet Volume 10.6 fL (7.4-10.4); Monocytes 6 % (0-10); Neutrophil 71 % (42-75); Nucleated RBC 3 % (0); Platelet Count 349 thou/uL (130-400); RBC Distribution Width 23.1 % (11.5-14.5); Reactive Lymphocytes 5 % (0-10); White Blood Cell (WBC) Count 17.3 thou/uL (4.8-10.8)
[2021-08-04 12:51] LABS: BUN (Urea Nitrogen) 118 mg/dL (9.8-20.1)
[2021-08-04] MEDS ORDERED: Vancomycin 1 GM/200 ML BAG ONE (12:53)
[2021-08-04 12:57] LABS: Clarity Turbid (Clear); Squamous Epithelial 0-3 HPF (0-3)
[2021-08-04 12:59] LABS: CKMB 0.9 ng/mL (0-6.6)
[2021-08-04 12:59] LABS: RBC/HPF 0-3 HPF (0-3)
[2021-08-04] MEDS ORDERED: Ondansetron PF 4 MG/2 ML Vial IVP PRN (13:20)
[2021-08-04] MEDS ORDERED: Meropenem 1 GM in Sodium Chloride 0.9% 100 ML IVPB SCH (14:00)
[2021-08-04] MEDS ORDERED: MEROPENEM 1 GM/50 ML 1 GM in Premix Bag 1 BAG IVPB SCH (15:15)
[2021-08-04 15:16] LABS: Troponin I 0.073 ng/mL (< 0.028)
[2021-08-04 16:20] LABS: SARS-CoV-2 NAA Rapid Test Not Detected (NotDetected)
[2021-08-04] MEDS ORDERED: Metolazone 2.5 MG TAB PO PRN (17:48)
[2021-08-04 18:27] LABS: Troponin I 0.053 ng/mL (< 0.028)
[2021-08-04 19:55] LABS: Creatinine, Urine 112.59 mg/dL (47-110)
[2021-08-04] MEDS ORDERED: Vancomycin 1 GM in Premix Bag 1 BAG IVPB SCH (21:00)
[2021-08-04] MEDS: Allopurinol 100 MG TAB PO SCH (21:04)
[2021-08-04] MEDS: rOPINIRole HCl 1 MG TAB PO SCH (21:04)
[2021-08-04] MEDS: Sildenafil Citrate 20 MG TAB PO SCH (21:04)
[2021-08-04] MEDS: hydrALAZINE 25 MG TAB PO SCH (21:05)
[2021-08-04] MEDS: Gabapentin 300 MG CAP PO SCH (21:07)
[2021-08-04] MEDS ORDERED: Lorazepam 1 MG TAB PO PRN (21:20)
[2021-08-04] MEDS ORDERED: Lorazepam 2 MG/ML VIAL ONE (21:21)
[2021-08-04] MEDS ORDERED: Lorazepam 1 MG TAB PO SCH (22:00)
[2021-08-04] MEDS ORDERED: Lorazepam 2 MG/ML VIAL SLOW IVP SCH (22:00)
[2021-08-04] MEDS: Torsemide 20 MG TAB PO SCH (22:01)
[2021-08-04] MEDS: Albuterol Sulfate 1.25 MG/3 ML NEB NEB PRN (22:48)
[2021-08-05 03:57] LABS: Actual Bicarbonate (HCO3a) 31.4 mEq/L (22-28); Base Excess (BEa) 4.5 mEq/L (-2.0 to +3.0); Calcium, Ionized (arterial) 1.06 mmol/L (1.12-1.30); Carboxyhemoglobin (COHb) 1.6 gm% (0.0-3.0); Hemoglobin (Hb) 8.6 g/dL (12.0-16.0); O2 Tension (PaO2), arterial 79.5 mmHg (> 70.0); Potassium - ABG Lab 4.87 mmol/L (3.70-5.30); pH, Arterial 7.33 (7.35-7.45)
[2021-08-05 04:01] LABS: CO2 Tension 61.4 mmHg (35.0-45.0); Puncture Site RR
[2021-08-05 04:17] LABS: Mean Corpuscular HGB CONC 31.5 g/dL (32.0-36.0); Mean Corpuscular Hemoglobin 33.7 pg (27.0-31.0); Mean Platelet Volume 10.8 fL (7.4-10.4); Platelet Count 269 thou/uL (130-400); RBC Distribution Width 19.3 % (11.5-14.5); Red Blood Cell (RBC) Count 2.36 mill/uL (4.20-5.40); White Blood Cell (WBC) Count 15.4 thou/uL (4.8-10.8)
[2021-08-05 04:25] LABS: Phosphorus 5.4 mg/dL (2.3-4.7)
[2021-08-05 04:29] LABS: ALT (SGPT) 12 U/L (8-55); AST (SGOT) 14 U/L (5-34); Albumin 3.4 g/dL (3.4-4.8); Alkaline Phosphatase 51 U/L (40-110); Anion Gap 17 mmol/L (10-20); Bilirubin, Total 0.8 mg/dL (0.2-1.2); Calc. Creatinine Clearance 21 mL/min (70-130); Calcium 7.9 mg/dL (7.8-10.44); Carbon Dioxide 29 mmol/L (23-31); Chloride 97 mmol/L (98-107); Globulin 1.9 g/dL (2.4-3.5); Glucose 94 mg/dL (80-115); Potassium 5.3 mmol/L (3.5-5.1); Protein, Total 5.3 g/dL (5.8-8.1); Sodium 138 mmol/L (136-145)
[2021-08-05 04:40] LABS: BUN (Urea Nitrogen) 122 mg/dL (9.8-20.1)
[2021-08-05 05:04] LABS: Band 12 % (5-11); Lymphocytes 4 % (21-51); MDiff Complete? YES; Monocytes 6 % (0-10); Neutrophil 78 % (42-75)
[2021-08-05] MEDS ORDERED: DULoxetine 60 MG CAP PO SCH (09:00)
[2021-08-05] MEDS ORDERED: Enoxaparin Sodium 40 MG/0.4 ML SYRINGE SC SCH (09:00)
[2021-08-05] MEDS: hydrALAZINE 25 MG TAB PO SCH ×3 (10:58→20:04)
[2021-08-05] MEDS: Atorvastatin Calcium 40 MG TAB PO SCH (10:58)
[2021-08-05] MEDS: Sildenafil Citrate 20 MG TAB PO SCH ×3 (10:59→20:04)
[2021-08-05] MEDS: Allopurinol 100 MG TAB PO SCH ×2 (10:59→20:03)
[2021-08-05] MEDS: Hydroxyurea 500 MG CAP PO SCH (10:59)
[2021-08-05] MEDS: Meropenem 500 MG in Sodium Chloride 0.9% 100 ML IVPB SCH ×3 (11:03→22:14)
[2021-08-05] MEDS: Sodium Chloride 0.9% 1,000 ML IV SCH ×2 (11:05→22:24)
[2021-08-05 12:43] LABS: Vancomycin, Random 30.3 ug/mL (See Comment)
[2021-08-05] MEDS ORDERED: VANCOMYCIN 1.25 GM/250 ML BAG 1.25 GM in Premix Bag 1 BAG IVPB SCH (13:00)
[2021-08-05] MEDS: Gabapentin 300 MG CAP PO SCH (20:03)
[2021-08-05] MEDS: rOPINIRole HCl 1 MG TAB PO SCH (20:04)
[2021-08-05] MEDS: Melatonin 3 MG TAB PO PRN (22:14)
[2021-08-06 04:12] LABS: Hemoglobin 8.3 g/dL (12.0-16.0); Mean Corpuscular HGB CONC 31.8 g/dL (32.0-36.0); Mean Corpuscular Hemoglobin 33.5 pg (27.0-31.0); Mean Platelet Volume 10.7 fL (7.4-10.4); Platelet Count 268 thou/uL (130-400); RBC Distribution Width 23.1 % (11.5-14.5); Red Blood Cell (RBC) Count 2.47 mill/uL (4.20-5.40); White Blood Cell (WBC) Count 15.8 thou/uL (4.8-10.8)
[2021-08-06 04:35] LABS: Anion Gap 19 mmol/L (10-20); Calc. Creatinine Clearance 20 mL/min (70-130); Calcium 7.8 mg/dL (7.8-10.44); Carbon Dioxide 27 mmol/L (23-31); Chloride 97 mmol/L (98-107); Glucose 97 mg/dL (80-115); Potassium 4.8 mmol/L (3.5-5.1); Sodium 138 mmol/L (136-145)
[2021-08-06 04:38] LABS: Anisocytosis SLIGHT = 6-15 cells (100X) (0-5/hpf); Band 5 % (5-11); Lymphocytes 3 % (21-51); MDiff Complete? YES; Macrocytosis SLIGHT = 6-15 cells (100X) (0-5/hpf); Monocytes 3 % (0-10); Neutrophil 89 % (42-75); Tear Drops SLIGHT = 2-5 cells (100X) (0-1/hpf)
[2021-08-06 04:46] LABS: BUN (Urea Nitrogen) 131 mg/dL (9.8-20.1)
[2021-08-06] MEDS: Atorvastatin Calcium 40 MG TAB PO SCH (10:54)
[2021-08-06] MEDS: Allopurinol 100 MG TAB PO SCH ×2 (10:55→21:20)
[2021-08-06] MEDS: Sildenafil Citrate 20 MG TAB PO SCH ×3 (10:58→21:20)
[2021-08-06] MEDS: Torsemide 20 MG TAB PO SCH (10:58)
[2021-08-06] MEDS: Hydroxyurea 500 MG CAP PO SCH (10:58)
[2021-08-06] MEDS: hydrALAZINE 25 MG TAB PO SCH ×3 (10:58→21:26)
[2021-08-06] MEDS: Enoxaparin Sodium 30 MG/0.3 ML SYRINGE SC SCH (10:59)
[2021-08-06] MEDS: Sodium Chloride 0.9% 1,000 ML IV SCH ×3 (11:00→22:08)
[2021-08-06] MEDS: Meropenem 500 MG in Sodium Chloride 0.9% 100 ML IVPB SCH ×2 (14:49→22:08)
[2021-08-06] MEDS: Melatonin 3 MG TAB PO PRN (21:20)
[2021-08-06] MEDS: Gabapentin 300 MG CAP PO SCH (21:20)
[2021-08-06] MEDS: rOPINIRole HCl 1 MG TAB PO SCH (21:20)
[2021-08-06] MEDS: Acetaminophen 325 MG TAB PO PRN (21:25)
[2021-08-07] MEDS: Acetaminophen 325 MG TAB PO PRN (03:29)
[2021-08-07 07:19] LABS: Hemoglobin 7.7 g/dL (12.0-16.0); Mean Corpuscular HGB CONC 31.4 g/dL (32.0-36.0); Mean Corpuscular Hemoglobin 34.1 pg (27.0-31.0); Mean Platelet Volume 9.8 fL (7.4-10.4); Platelet Count 263 thou/uL (130-400); RBC Distribution Width 19.9 % (11.5-14.5); Red Blood Cell (RBC) Count 2.25 mill/uL (4.20-5.40)
[2021-08-07 07:35] LABS: Albumin 3.3 g/dL (3.4-4.8); Anion Gap 16 mmol/L (10-20); Calc. Creatinine Clearance 18 mL/min (70-130); Calcium 7.4 mg/dL (7.8-10.44); Carbon Dioxide 28 mmol/L (23-31); Chloride 99 mmol/L (98-107); Glucose 111 mg/dL (80-115); Phosphorus 8.8 mg/dL (2.3-4.7); Potassium 4.3 mmol/L (3.5-5.1); Sodium 139 mmol/L (136-145)
[2021-08-07 07:46] LABS: BUN (Urea Nitrogen) 125 mg/dL (9.8-20.1); BUN/Creatinine Ratio 32.13
[2021-08-07] MEDS: Sevelamer Carbonate 800 MG TAB PO SCH ×3 (10:09→17:48)
[2021-08-07] MEDS: Allopurinol 100 MG TAB PO SCH ×2 (10:09→20:29)
[2021-08-07] MEDS: Atorvastatin Calcium 40 MG TAB PO SCH (10:09)
[2021-08-07] MEDS: Hydroxyurea 500 MG CAP PO SCH (10:10)
[2021-08-07] MEDS: Sildenafil Citrate 20 MG TAB PO SCH ×3 (10:10→20:29)
[2021-08-07] MEDS: Enoxaparin Sodium 30 MG/0.3 ML SYRINGE SC SCH (10:12)
[2021-08-07] MEDS: Meropenem 500 MG in Sodium Chloride 0.9% 100 ML IVPB SCH ×2 (10:12→23:32)
[2021-08-07] MEDS: Sodium Chloride 0.9% 1,000 ML IV SCH ×3 (10:13→23:31)
[2021-08-07] MEDS: hydrALAZINE 25 MG TAB PO SCH (10:14)
[2021-08-07] MEDS: Gabapentin 300 MG CAP PO SCH (20:29)
[2021-08-07] MEDS: rOPINIRole HCl 1 MG TAB PO SCH (20:29)
[2021-08-07] MEDS: diphenhydrAMINE 25 MG CAP PO PRN (20:38)
[2021-08-07] MEDS: Melatonin 3 MG TAB PO PRN (20:38)
[2021-08-08 04:18] LABS: Albumin 3.1 g/dL (3.4-4.8); Anion Gap 20 mmol/L (10-20); Calc. Creatinine Clearance 19 mL/min (70-130); Calcium 7.1 mg/dL (7.8-10.44); Carbon Dioxide 24 mmol/L (23-31); Chloride 103 mmol/L (98-107); Glucose 84 mg/dL (80-115); Phosphorus 8.8 mg/dL (2.3-4.7); Potassium 4.5 mmol/L (3.5-5.1); Sodium 142 mmol/L (136-145)
[2021-08-08 04:29] LABS: BUN (Urea Nitrogen) 113 mg/dL (9.8-20.1); BUN/Creatinine Ratio 29.66
[2021-08-08 04:51] LABS: Anisocytosis SLIGHT = 6-15 cells (100X) (0-5/hpf); Band 1 % (5-11); Hemoglobin 7.5 g/dL (12.0-16.0); Lymphocytes 1 % (21-51); MDiff Complete? YES; Macrocytosis SLIGHT = 6-15 cells (100X) (0-5/hpf); Mean Corpuscular HGB CONC 31.8 g/dL (32.0-36.0); Mean Corpuscular Hemoglobin 34.5 pg (27.0-31.0); Monocytes 2 % (0-10); Neutrophil 96 % (42-75); Platelet Count 251 thou/uL (130-400); RBC Distribution Width 19.4 % (11.5-14.5); Red Blood Cell (RBC) Count 2.19 mill/uL (4.20-5.40); White Blood Cell (WBC) Count 9.4 thou/uL (4.8-10.8)
[2021-08-08] MEDS: Sevelamer Carbonate 800 MG TAB PO SCH ×3 (07:54→17:30)
[2021-08-08] MEDS: Allopurinol 100 MG TAB PO SCH ×2 (07:54→20:49)
[2021-08-08] MEDS: Hydroxyurea 500 MG CAP PO SCH (07:54)
[2021-08-08] MEDS: Atorvastatin Calcium 40 MG TAB PO SCH (07:54)
[2021-08-08] MEDS: Sildenafil Citrate 20 MG TAB PO SCH ×3 (07:54→20:50)
[2021-08-08] MEDS: Enoxaparin Sodium 30 MG/0.3 ML SYRINGE SC SCH (07:54)
[2021-08-08] MEDS: Sodium Chloride 0.9% 1,000 ML IV SCH (10:10)
[2021-08-08] MEDS: Meropenem 500 MG in Sodium Chloride 0.9% 100 ML IVPB SCH ×2 (10:32→23:07)
[2021-08-08] MEDS: Gabapentin 300 MG CAP PO SCH (20:49)
[2021-08-08] MEDS: Melatonin 3 MG TAB PO PRN (20:49)
[2021-08-08] MEDS: diphenhydrAMINE 25 MG CAP PO PRN (20:49)
[2021-08-08] MEDS: rOPINIRole HCl 1 MG TAB PO SCH (20:50)
[2021-08-09] MEDS: diphenhydrAMINE 25 MG CAP PO PRN (04:05)
[2021-08-09 04:22] LABS: Anion Gap 16 mmol/L (10-20); Calc. Creatinine Clearance 19 mL/min (70-130); Calcium 7.1 mg/dL (7.8-10.44); Carbon Dioxide 26 mmol/L (23-31); Chloride 104 mmol/L (98-107); Glucose 113 mg/dL (80-115); Iron 22 ug/dL (50-170); Iron Binding Capacity, Total 240 mcg/dL (265-497); Potassium 4.1 mmol/L (3.5-5.1); Sodium 142 mmol/L (136-145)
[2021-08-09 04:28] LABS: Band 4 % (5-11); Hemoglobin 8.2 g/dL (12.0-16.0); Lymphocytes 4 % (21-51); MDiff Complete? YES; Macrocytosis SLIGHT = 6-15 cells (100X) (0-5/hpf); Mean Corpuscular HGB CONC 31.8 g/dL (32.0-36.0); Mean Corpuscular Hemoglobin 34.4 pg (27.0-31.0); Mean Platelet Volume 9.9 fL (7.4-10.4); Monocytes 3 % (0-10); Neutrophil 89 % (42-75); Platelet Count 306 thou/uL (130-400); Platelet Morphology Comment Appears Adequate; Polychromasia SLIGHT = 2-3 cells (100X) (0-2/hpf); RBC Distribution Width 19.6 % (11.5-14.5); Red Blood Cell (RBC) Count 2.37 mill/uL (4.20-5.40); Tear Drops SLIGHT = 2-5 cells (100X) (0-1/hpf); White Blood Cell (WBC) Count 11.2 thou/uL (4.8-10.8)
[2021-08-09 04:36] LABS: BUN (Urea Nitrogen) 118 mg/dL (9.8-20.1)
[2021-08-09 07:28] LABS: Creatinine, Urine 95.62 mg/dL (47-110)
[2021-08-09] MEDS: Hydroxyurea 500 MG CAP PO SCH (07:57)
[2021-08-09] MEDS: Atorvastatin Calcium 40 MG TAB PO SCH (07:57)
[2021-08-09] MEDS: Allopurinol 100 MG TAB PO SCH ×2 (07:58→20:19)
[2021-08-09] MEDS: Sevelamer Carbonate 800 MG TAB PO SCH ×3 (07:58→17:01)
[2021-08-09] MEDS: Sildenafil Citrate 20 MG TAB PO SCH ×3 (07:58→20:19)
[2021-08-09] MEDS: Heparin 5,000 UNITS/ML VIAL SC SCH ×2 (08:00→20:22)
[2021-08-09] MEDS: Meropenem 500 MG in Sodium Chloride 0.9% 100 ML IVPB SCH ×2 (11:06→22:57)
[2021-08-09] MEDS ORDERED: Furosemide 100 MG/10 ML VIAL SLOW IVP SCH (13:45)
[2021-08-09] MEDS: rOPINIRole HCl 1 MG TAB PO SCH (20:19)
[2021-08-09] MEDS: Gabapentin 300 MG CAP PO SCH (20:19)
[2021-08-09 21:55] LABS: Magnesium 1.8 mg/dL (1.6-2.6); Potassium 4.1 mmol/L (3.5-5.1)
[2021-08-09] MEDS ORDERED: Metoprolol Tartrate 5 MG/5 ML VIAL IVP SCH (22:00)
[2021-08-09] MEDS ORDERED: Metoprolol Tartrate 5 MG/5 ML VIAL IVP PRN (22:05)
[2021-08-09 22:16] LABS: CKMB 1.1 ng/mL (0-6.6)
[2021-08-10] MEDS: Albuterol Sulfate 1.25 MG/3 ML NEB NEB PRN (07:59)
[2021-08-10 08:17] LABS: Anion Gap 18 mmol/L (10-20); Calc. Creatinine Clearance 20 mL/min (70-130); Calcium 7.4 mg/dL (7.8-10.44); Carbon Dioxide 24 mmol/L (23-31); Chloride 105 mmol/L (98-107); Glucose 106 mg/dL (80-115); Potassium 4.5 mmol/L (3.5-5.1); Sodium 142 mmol/L (136-145)
[2021-08-10 08:27] LABS: Hemoglobin 8.4 g/dL (12.0-16.0); Mean Corpuscular HGB CONC 32.4 g/dL (32.0-36.0); Mean Corpuscular Hemoglobin 34.5 pg (27.0-31.0); Platelet Count 301 thou/uL (130-400); RBC Distribution Width 19.3 % (11.5-14.5); Red Blood Cell (RBC) Count 2.44 mill/uL (4.20-5.40); White Blood Cell (WBC) Count 13.2 thou/uL (4.8-10.8)
[2021-08-10 08:28] LABS: BUN (Urea Nitrogen) 126 mg/dL (9.8-20.1)
[2021-08-10] MEDS: Hydroxyurea 500 MG CAP PO SCH (08:30)
[2021-08-10] MEDS: Allopurinol 100 MG TAB PO SCH ×2 (08:30→21:05)
[2021-08-10] MEDS: Sevelamer Carbonate 800 MG TAB PO SCH ×3 (08:30→16:32)
[2021-08-10] MEDS: Sildenafil Citrate 20 MG TAB PO SCH ×3 (08:30→21:05)
[2021-08-10] MEDS: Atorvastatin Calcium 40 MG TAB PO SCH (08:30)
[2021-08-10] MEDS: Heparin 5,000 UNITS/ML VIAL SC SCH ×2 (08:31→21:06)
[2021-08-10] MEDS ORDERED: Iron Sucrose Complex 200 MG in Sodium Chloride 0.9% 100 ML IVPB SCH (09:00)
[2021-08-10] MEDS: Iron, Sodium Ferric Gluconate 250 MG in Sodium Chloride 0.9% 100 ML IVPB SCH (09:43)
[2021-08-10 11:14] LABS: Anisocytosis MODERATE=16-30 cells (100X) (0-5/hpf); Band 1 % (5-11); Eosinophils 2 % (0-10); Large Platelets SLIGHT; Lymphocytes 5 % (21-51); MDiff Complete? YES; Monocytes 5 % (0-10); Neutrophil 87 % (42-75); Ovalocytes SLIGHT = 2-5 cells (100X) (0-1/hpf); Platelet Morphology Comment Appears Adequate; Polychromasia SLIGHT = 2-3 cells (100X) (0-2/hpf)
[2021-08-10] MEDS: Meropenem 500 MG in Sodium Chloride 0.9% 100 ML IVPB SCH ×2 (11:47→23:10)
[2021-08-10] MEDS: Amiodarone 450 MG in Dextrose 5% in Water 250 ML IVPB SCH ×2 (12:45→18:44)
[2021-08-10] MEDS ORDERED: Metolazone 5 MG TAB PO SCH (15:58)
[2021-08-10] MEDS ORDERED: Furosemide 40 MG/4 ML VIAL SLOW IVP SCH (15:58)
[2021-08-10] MEDS: rOPINIRole HCl 1 MG TAB PO SCH (21:05)
[2021-08-10] MEDS: Gabapentin 300 MG CAP PO SCH (21:05)
[2021-08-10] MEDS: diphenhydrAMINE 25 MG CAP PO PRN (21:08)
[2021-08-10] MEDS: Furosemide 40 MG/4 ML VIAL SLOW IVP SCH (23:10)
[2021-08-11] MEDS: Albuterol Sulfate 1.25 MG/3 ML NEB NEB PRN ×2 (01:42→18:29)
[2021-08-11 05:25] LABS: Anion Gap 18 mmol/L (10-20); Calc. Creatinine Clearance 19 mL/min (70-130); Calcium 7.1 mg/dL (7.8-10.44); Carbon Dioxide 22 mmol/L (23-31); Chloride 104 mmol/L (98-107); Glucose 82 mg/dL (80-115); Potassium 4.8 mmol/L (3.5-5.1); Sodium 139 mmol/L (136-145)
[2021-08-11 05:36] LABS: BUN (Urea Nitrogen) 125 mg/dL (9.8-20.1)
[2021-08-11 05:37] LABS: Band 4 % (5-11); Hemoglobin 7.5 g/dL (12.0-16.0); Lymphocytes 3 % (21-51); MDiff Complete? YES; Macrocytosis SLIGHT = 6-15 cells (100X) (0-5/hpf); Mean Corpuscular HGB CONC 32.5 g/dL (32.0-36.0); Mean Corpuscular Hemoglobin 34.2 pg (27.0-31.0); Mean Platelet Volume 9.9 fL (7.4-10.4); Monocytes 5 % (0-10); Myelocyte 1 % (0-0); Neutrophil 84 % (42-75); Nucleated RBC 1 % (0); Platelet Count 302 thou/uL (130-400); Platelet Morphology Comment Appears Adequate; RBC Distribution Width 22.8 % (11.5-14.5); Reactive Lymphocytes 3 % (0-10); Red Blood Cell (RBC) Count 2.19 mill/uL (4.20-5.40); White Blood Cell (WBC) Count 13.3 thou/uL (4.8-10.8)
[2021-08-11] MEDS: Furosemide 40 MG/4 ML VIAL SLOW IVP SCH ×3 (06:26→22:53)
[2021-08-11] MEDS: Atorvastatin Calcium 40 MG TAB PO SCH (08:10)
[2021-08-11] MEDS: Hydroxyurea 500 MG CAP PO SCH (08:10)
[2021-08-11] MEDS: Sildenafil Citrate 20 MG TAB PO SCH ×3 (08:10→20:13)
[2021-08-11] MEDS: Sevelamer Carbonate 800 MG TAB PO SCH ×3 (08:10→16:39)
[2021-08-11] MEDS: Allopurinol 100 MG TAB PO SCH ×2 (08:10→20:12)
[2021-08-11] MEDS: Heparin 5,000 UNITS/ML VIAL SC SCH ×2 (08:11→20:21)
[2021-08-11] MEDS ORDERED: CHOLECALCIFEROL 1250 MCG PO SCH (09:00)
[2021-08-11] MEDS: Iron, Sodium Ferric Gluconate 250 MG in Sodium Chloride 0.9% 100 ML IVPB SCH (10:13)
[2021-08-11] MEDS: Meropenem 500 MG in Sodium Chloride 0.9% 100 ML IVPB SCH ×2 (10:13→22:54)
[2021-08-11] MEDS ORDERED: Amiodarone 200 MG TAB PO SCH (13:00)
[2021-08-11] MEDS ORDERED: Metolazone 5 MG TAB PO SCH (14:45)
[2021-08-11] MEDS: rOPINIRole HCl 1 MG TAB PO SCH (20:12)
[2021-08-11] MEDS: Gabapentin 300 MG CAP PO SCH (20:13)
[2021-08-11] MEDS: Amiodarone 200 MG TAB PO SCH (20:13)
[2021-08-12] MEDS: Acetaminophen 325 MG TAB PO PRN ×2 (04:13→22:45)
[2021-08-12 04:20] LABS: Anion Gap 21 mmol/L (10-20); Calc. Creatinine Clearance 18 mL/min (70-130); Calcium 7.3 mg/dL (7.8-10.44); Carbon Dioxide 21 mmol/L (23-31); Chloride 103 mmol/L (98-107); Glucose 91 mg/dL (80-115); Potassium 4.9 mmol/L (3.5-5.1); Sodium 140 mmol/L (136-145)
[2021-08-12 04:21] LABS: Band 7 % (5-11); Eosinophils 1 % (0-10); Hemoglobin 7.6 g/dL (12.0-16.0); Hypochromia SLIGHT = 6-15 cells (100X) (0-5/hpf); Lymphocytes 8 % (21-51); MDiff Complete? YES; Macrocytosis SLIGHT = 6-15 cells (100X) (0-5/hpf); Mean Corpuscular HGB CONC 32.3 g/dL (32.0-36.0); Mean Corpuscular Hemoglobin 33.9 pg (27.0-31.0); Mean Platelet Volume 9.8 fL (7.4-10.4); Monocytes 15 % (0-10); Neutrophil 69 % (42-75); Platelet Count 315 thou/uL (130-400); Platelet Morphology Comment Appears Adequate; RBC Distribution Width 22.8 % (11.5-14.5); Red Blood Cell (RBC) Count 2.25 mill/uL (4.20-5.40); White Blood Cell (WBC) Count 13.4 thou/uL (4.8-10.8)
[2021-08-12 04:32] LABS: BUN (Urea Nitrogen) 129 mg/dL (9.8-20.1)
[2021-08-12] MEDS ORDERED: Metolazone 5 MG TAB PO SCH ×2 (08:00→09:00)
[2021-08-12] MEDS ORDERED: Furosemide 100 MG/10 ML VIAL SLOW IVP SCH (09:00)
[2021-08-12] MEDS: Sevelamer Carbonate 800 MG TAB PO SCH ×3 (09:49→17:16)
[2021-08-12] MEDS: Atorvastatin Calcium 40 MG TAB PO SCH (09:49)
[2021-08-12] MEDS: Sildenafil Citrate 20 MG TAB PO SCH ×3 (09:50→20:30)
[2021-08-12] MEDS: Allopurinol 100 MG TAB PO SCH ×2 (09:50→20:30)
[2021-08-12] MEDS: Hydroxyurea 500 MG CAP PO SCH (09:50)
[2021-08-12] MEDS: Amiodarone 200 MG TAB PO SCH ×2 (09:50→22:46)
[2021-08-12] MEDS: Heparin 5,000 UNITS/ML VIAL SC SCH ×2 (09:50→20:34)
[2021-08-12] MEDS ORDERED: Iron, Sodium Ferric Gluconate 250 MG in Sodium Chloride 0.9% 250 ML 250 ML IVPB SCH (11:00)
[2021-08-12] MEDS: Iron, Sodium Ferric Gluconate 250 MG in Sodium Chloride 0.9% 100 ML IVPB SCH (11:16)
[2021-08-12] MEDS: Meropenem 500 MG in Sodium Chloride 0.9% 100 ML IVPB SCH ×2 (11:20→22:46)
[2021-08-12 11:33] LABS: SARS-CoV-2 PCR by NAA Not Detected (NotDetected)
[2021-08-12] MEDS: rOPINIRole HCl 1 MG TAB PO SCH (20:30)
[2021-08-12] MEDS: Gabapentin 300 MG CAP PO SCH (20:31)
[2021-08-12] MEDS: Furosemide 100 MG/10 ML VIAL SLOW IVP SCH (20:43)
[2021-08-12] MEDS: diphenhydrAMINE 25 MG CAP PO PRN (22:48)
[2021-08-13 05:40] LABS: Anion Gap 20 mmol/L (10-20); Calc. Creatinine Clearance 17 mL/min (70-130); Calcium 7.4 mg/dL (7.8-10.44); Carbon Dioxide 23 mmol/L (23-31); Chloride 103 mmol/L (98-107); Glucose 78 mg/dL (80-115); Potassium 4.9 mmol/L (3.5-5.1); Sodium 141 mmol/L (136-145)
[2021-08-13 05:51] LABS: BUN (Urea Nitrogen) 128 mg/dL (9.8-20.1)
[2021-08-13] MEDS ORDERED: EPOETIN ALFA-EPBX (ESRD) 10,000 UNIT/ML VIAL SC SCH (08:00)
[2021-08-13] MEDS: Sildenafil Citrate 20 MG TAB PO SCH ×3 (09:27→20:47)
[2021-08-13] MEDS: Sevelamer Carbonate 800 MG TAB PO SCH ×3 (09:27→16:54)
[2021-08-13] MEDS: Amiodarone 200 MG TAB PO SCH ×2 (09:27→22:45)
[2021-08-13] MEDS: Allopurinol 100 MG TAB PO SCH ×2 (09:27→20:47)
[2021-08-13] MEDS: Hydroxyurea 500 MG CAP PO SCH (09:27)
[2021-08-13] MEDS: Atorvastatin Calcium 40 MG TAB PO SCH (09:27)
[2021-08-13] MEDS: Furosemide 100 MG/10 ML VIAL SLOW IVP SCH ×2 (09:32→20:48)
[2021-08-13] MEDS: Heparin 5,000 UNITS/ML VIAL SC SCH ×2 (09:41→20:58)
[2021-08-13] MEDS: Meropenem 500 MG in Sodium Chloride 0.9% 100 ML IVPB SCH ×2 (12:17→22:59)
[2021-08-13] MEDS: Gabapentin 300 MG CAP PO SCH (20:47)
[2021-08-13] MEDS: rOPINIRole HCl 1 MG TAB PO SCH (20:47)
[2021-08-14 04:11] LABS: Hemoglobin 7.8 g/dL (12.0-16.0); Mean Corpuscular HGB CONC 32.2 g/dL (32.0-36.0); Mean Corpuscular Hemoglobin 33.4 pg (27.0-31.0); Mean Platelet Volume 9.6 fL (7.4-10.4); Platelet Count 340 thou/uL (130-400); RBC Distribution Width 22.6 % (11.5-14.5); Red Blood Cell (RBC) Count 2.32 mill/uL (4.20-5.40); White Blood Cell (WBC) Count 11.6 thou/uL (4.8-10.8)
[2021-08-14 04:23] LABS: Anion Gap 18 mmol/L (10-20); Calc. Creatinine Clearance 15 mL/min (70-130); Carbon Dioxide 24 mmol/L (23-31); Chloride 103 mmol/L (98-107); Potassium 5.1 mmol/L (3.5-5.1); Sodium 140 mmol/L (136-145)
[2021-08-14 04:24] LABS: Albumin 3.3 g/dL (3.4-4.8); Calcium 7.4 mg/dL (7.8-10.44); Glucose 94 mg/dL (80-115)
[2021-08-14 04:45] LABS: BUN (Urea Nitrogen) 139 mg/dL (9.8-20.1); BUN/Creatinine Ratio 26.33
[2021-08-14 05:05] LABS: Phosphorus 9.5 mg/dL (2.3-4.7)
[2021-08-14] MEDS: Atorvastatin Calcium 40 MG TAB PO SCH (09:22)
[2021-08-14] MEDS: Hydroxyurea 500 MG CAP PO SCH (09:22)
[2021-08-14] MEDS: Allopurinol 100 MG TAB PO SCH ×2 (09:22→23:25)
[2021-08-14] MEDS: Sildenafil Citrate 20 MG TAB PO SCH ×3 (09:23→23:25)
[2021-08-14] MEDS: Furosemide 100 MG/10 ML VIAL SLOW IVP SCH ×2 (09:23→21:00)
[2021-08-14] MEDS: Amiodarone 200 MG TAB PO SCH ×2 (09:24→23:26)
[2021-08-14] MEDS: Sevelamer Carbonate 800 MG TAB PO SCH ×3 (09:24→15:40)
[2021-08-14] MEDS: Heparin 5,000 UNITS/ML VIAL SC SCH ×2 (09:24→23:18)
[2021-08-14] MEDS ORDERED: Heparin 10,000 UNITS/ 10 ML VIAL ONE ×2 (10:08→17:18)
[2021-08-14] MEDS: Meropenem 500 MG in Sodium Chloride 0.9% 100 ML IVPB SCH ×2 (11:01→23:17)
[2021-08-14 13:26] LABS: HBSAB Concentration Less than 8.00 mIU/mL; Hep B Core Total Ab Non-Reactive (NonReactive); Hep B Core Total Index 0.04 S/CO (0-0.79); Hep B Surf AB Non-Reactive (NonReactive); Hep B Surf Ag Non-Reactive S/CO (NonReactive); Hep C IgG Ab Non-Reactive (NonReactive); Hep C Index 0.11 S/CO (0-0.79)
[2021-08-14] MEDS ORDERED: ceFAZolin 2 GM/DEX 5% 100 ML BAG ONE (17:14)
[2021-08-14] MEDS ORDERED: Lidocaine 1% w/Epinephrine 1:100K 20 ML VIAL ONE (17:18)
[2021-08-14] MEDS ORDERED: Bupivacaine PF 0.5% 30 ML VIAL ONE (17:18)
[2021-08-14] MEDS ORDERED: Sodium Chloride 0.9% 30 ML ONE (17:18)
[2021-08-14] MEDS ORDERED: Midazolam HCl 2 mg/2 ml Vial ONE (17:21)
[2021-08-14] MEDS: Gabapentin 300 MG CAP PO SCH (23:25)
[2021-08-14] MEDS: rOPINIRole HCl 1 MG TAB PO SCH (23:25)
[2021-08-15 05:17] LABS: Albumin 3.2 g/dL (3.4-4.8); Anion Gap 15 mmol/L (10-20); BUN (Urea Nitrogen) 109 mg/dL (9.8-20.1); Calc. Creatinine Clearance 19 mL/min (70-130); Calcium 7.4 mg/dL (7.8-10.44); Carbon Dioxide 28 mmol/L (23-31); Chloride 102 mmol/L (98-107); Glucose 82 mg/dL (80-115); Phosphorus 7.4 mg/dL (2.3-4.7); Potassium 4.5 mmol/L (3.5-5.1); Sodium 140 mmol/L (136-145)
[2021-08-15] MEDS: Atorvastatin Calcium 40 MG TAB PO SCH (09:47)
[2021-08-15] MEDS: Amiodarone 200 MG TAB PO SCH ×2 (09:47→21:33)
[2021-08-15] MEDS: Sevelamer Carbonate 800 MG TAB PO SCH ×3 (09:47→17:31)
[2021-08-15] MEDS: Allopurinol 100 MG TAB PO SCH ×2 (09:47→21:32)
[2021-08-15] MEDS: Hydroxyurea 500 MG CAP PO SCH (09:48)
[2021-08-15] MEDS: Heparin 5,000 UNITS/ML VIAL SC SCH ×2 (09:48→21:38)
[2021-08-15] MEDS: Furosemide 100 MG/10 ML VIAL SLOW IVP SCH ×2 (09:48→21:38)
[2021-08-15] MEDS: Sildenafil Citrate 20 MG TAB PO SCH ×3 (09:49→21:34)
[2021-08-15] MEDS ORDERED: Heparin 10,000 UNITS/ 10 ML VIAL ONE (10:33)
[2021-08-15] MEDS: Gabapentin 300 MG CAP PO SCH (21:33)
[2021-08-15] MEDS: rOPINIRole HCl 1 MG TAB PO SCH (21:34)
[2021-08-16] MEDS: Meropenem 500 MG in Sodium Chloride 0.9% 100 ML IVPB SCH ×2 (00:14→23:59)
[2021-08-16 07:32] LABS: Anion Gap 12 mmol/L (10-20); BUN (Urea Nitrogen) 66 mg/dL (9.8-20.1); BUN/Creatinine Ratio 19.88; Calc. Creatinine Clearance 23 mL/min (70-130); Calcium 7.6 mg/dL (7.8-10.44); Carbon Dioxide 30 mmol/L (23-31); Chloride 103 mmol/L (98-107); Glucose 80 mg/dL (80-115); Phosphorus 5.6 mg/dL (2.3-4.7); Potassium 3.9 mmol/L (3.5-5.1); Sodium 141 mmol/L (136-145)
[2021-08-16] MEDS: Atorvastatin Calcium 40 MG TAB PO SCH (10:24)
[2021-08-16] MEDS: Hydroxyurea 500 MG CAP PO SCH (10:24)
[2021-08-16] MEDS: Amiodarone 200 MG TAB PO SCH ×2 (10:24→21:10)
[2021-08-16] MEDS: Allopurinol 100 MG TAB PO SCH ×2 (10:24→21:09)
[2021-08-16] MEDS: Sevelamer Carbonate 800 MG TAB PO SCH ×3 (10:24→16:29)
[2021-08-16] MEDS: Furosemide 100 MG/10 ML VIAL SLOW IVP SCH ×2 (10:25→21:09)
[2021-08-16] MEDS: Heparin 5,000 UNITS/ML VIAL SC SCH ×2 (10:26→21:10)
[2021-08-16] MEDS: Sildenafil Citrate 20 MG TAB PO SCH ×3 (10:27→21:10)
[2021-08-16] MEDS: EPOETIN ALFA-EPBX (ESRD) 3,000 UNIT/ML VIAL IVP SCH (10:33)
[2021-08-16] MEDS ORDERED: Heparin 10,000 UNITS/ 10 ML VIAL ONE (10:36)
[2021-08-16 13:30] LABS: Hemoglobin 8.3 g/dL (12.0-16.0); Mean Corpuscular HGB CONC 32.4 g/dL (32.0-36.0); Mean Corpuscular Hemoglobin 34.2 pg (27.0-31.0); Mean Platelet Volume 9.2 fL (7.4-10.4); Platelet Count 334 thou/uL (130-400); Red Blood Cell (RBC) Count 2.44 mill/uL (4.20-5.40); White Blood Cell (WBC) Count 12.9 thou/uL (4.8-10.8)
[2021-08-16] MEDS: rOPINIRole HCl 1 MG TAB PO SCH (21:08)
[2021-08-16] MEDS: Senokot S 8.6-50 MG TAB PO SCH (21:09)
[2021-08-16] MEDS: Gabapentin 300 MG CAP PO SCH (21:09)
[2021-08-17] MEDS: diphenhydrAMINE 25 MG CAP PO PRN ×2 (00:59→20:28)
[2021-08-17 06:21] LABS: Albumin 3.1 g/dL (3.4-4.8); Anion Gap 9 mmol/L (10-20); BUN (Urea Nitrogen) 39 mg/dL (9.8-20.1); BUN/Creatinine Ratio 14.72; Calc. Creatinine Clearance 29 mL/min (70-130); Carbon Dioxide 33 mmol/L (23-31); Chloride 103 mmol/L (98-107); Glucose 82 mg/dL (80-115); Phosphorus 3.2 mg/dL (2.3-4.7); Potassium 3.6 mmol/L (3.5-5.1); Sodium 141 mmol/L (136-145)
[2021-08-17 06:39] LABS: Anisocytosis SLIGHT = 6-15 cells (100X) (0-5/hpf); Band 7 % (5-11); Eosinophils 5 % (0-10); Hemoglobin 7.4 g/dL (12.0-16.0); Lymphocytes 3 % (21-51); MDiff Complete? YES; Macrocytosis SLIGHT = 6-15 cells (100X) (0-5/hpf); Mean Corpuscular HGB CONC 32.5 g/dL (32.0-36.0); Mean Corpuscular Hemoglobin 33.5 pg (27.0-31.0); Mean Platelet Volume 9.4 fL (7.4-10.4); Metamyelocyte 1 % (0-0); Monocytes 5 % (0-10); Neutrophil 79 % (42-75); Nucleated RBC 2 % (0); Platelet Count 308 thou/uL (130-400); Polychromasia SLIGHT = 2-3 cells (100X) (0-2/hpf); RBC Distribution Width 22.1 % (11.5-14.5); Red Blood Cell (RBC) Count 2.21 mill/uL (4.20-5.40); Stomatocytes SLIGHT = 2-5 cells (100X) (0-1/hpf); Tear Drops SLIGHT = 2-5 cells (100X) (0-1/hpf); White Blood Cell (WBC) Count 10.5 thou/uL (4.8-10.8)
[2021-08-17] MEDS: Atorvastatin Calcium 40 MG TAB PO SCH (09:25)
[2021-08-17] MEDS: Senokot S 8.6-50 MG TAB PO SCH ×2 (09:25→20:27)
[2021-08-17] MEDS: Hydroxyurea 500 MG CAP PO SCH (09:25)
[2021-08-17] MEDS: Amiodarone 200 MG TAB PO SCH ×2 (09:25→20:26)
[2021-08-17] MEDS: Sevelamer Carbonate 800 MG TAB PO SCH ×3 (09:26→16:53)
[2021-08-17] MEDS: Acetaminophen 325 MG TAB PO PRN ×2 (09:26→22:51)
[2021-08-17] MEDS: Sildenafil Citrate 20 MG TAB PO SCH ×3 (09:26→20:28)
[2021-08-17] MEDS: Furosemide 100 MG/10 ML VIAL SLOW IVP SCH (09:26)
[2021-08-17] MEDS: Allopurinol 100 MG TAB PO SCH ×2 (09:26→20:26)
[2021-08-17] MEDS: Heparin 5,000 UNITS/ML VIAL SC SCH ×2 (09:30→20:27)
[2021-08-17] MEDS: Polyethylene Glycol 3350 17 GM Packet PO SCH (09:31)
[2021-08-17] MEDS: Cefuroxime Axetil 250 MG TAB PO SCH (20:26)
[2021-08-17] MEDS: Gabapentin 300 MG CAP PO SCH (20:26)
[2021-08-17] MEDS: rOPINIRole HCl 1 MG TAB PO SCH (20:27)
[2021-08-18 04:38] LABS: Albumin 3.3 g/dL (3.4-4.8); Anion Gap 14 mmol/L (10-20); BUN (Urea Nitrogen) 46 mg/dL (9.8-20.1); BUN/Creatinine Ratio 12.99; Calc. Creatinine Clearance 22 mL/min (70-130); Calcium 8.1 mg/dL (7.8-10.44); Carbon Dioxide 28 mmol/L (23-31); Chloride 103 mmol/L (98-107); Glucose 89 mg/dL (80-115); Phosphorus 3.6 mg/dL (2.3-4.7); Sodium 141 mmol/L (136-145)
[2021-08-18 06:05] LABS: Anisocytosis MODERATE=16-30 cells (100X) (0-5/hpf); Band 19 % (5-11); Elliptocytes SLIGHT = 2-5 cells (100X) (0-1/hpf); Eosinophils 3 % (0-10); Hemoglobin 7.9 g/dL (12.0-16.0); Lymphocytes 3 % (21-51); MDiff Complete? YES; Macrocytosis SLIGHT = 6-15 cells (100X) (0-5/hpf); Mean Corpuscular HGB CONC 32.4 g/dL (32.0-36.0); Mean Corpuscular Hemoglobin 34.3 pg (27.0-31.0); Mean Platelet Volume 9.4 fL (7.4-10.4); Monocytes 1 % (0-10); Neutrophil 74 % (42-75); Ovalocytes SLIGHT = 2-5 cells (100X) (0-1/hpf); Platelet Count 305 thou/uL (130-400); Platelet Morphology Comment Appears Adequate; RBC Distribution Width 20.2 % (11.5-14.5); Red Blood Cell (RBC) Count 2.31 mill/uL (4.20-5.40); White Blood Cell (WBC) Count 10.2 thou/uL (4.8-10.8)
[2021-08-18] MEDS ORDERED: Torsemide 100 MG TAB PO SCH (09:00)
[2021-08-18] MEDS: Sildenafil Citrate 20 MG TAB PO SCH ×3 (10:08→20:18)
[2021-08-18] MEDS: Hydroxyurea 500 MG CAP PO SCH (10:09)
[2021-08-18] MEDS: Torsemide 100 MG TAB PO SCH (10:10)
[2021-08-18] MEDS: Senokot S 8.6-50 MG TAB PO SCH ×2 (10:12→20:55)
[2021-08-18] MEDS: Amiodarone 200 MG TAB PO SCH ×2 (10:13→20:19)
[2021-08-18] MEDS: Allopurinol 100 MG TAB PO SCH ×2 (10:13→20:22)
[2021-08-18] MEDS: Atorvastatin Calcium 40 MG TAB PO SCH (10:14)
[2021-08-18] MEDS: Heparin 5,000 UNITS/ML VIAL SC SCH ×2 (10:14→20:22)
[2021-08-18] MEDS: Sevelamer Carbonate 800 MG TAB PO SCH ×3 (10:15→17:30)
[2021-08-18] MEDS: Polyethylene Glycol 3350 17 GM Packet PO SCH (12:31)
[2021-08-18] MEDS: rOPINIRole HCl 1 MG TAB PO SCH (20:18)
[2021-08-18] MEDS: Cefuroxime Axetil 250 MG TAB PO SCH (20:19)
[2021-08-18] MEDS: Gabapentin 300 MG CAP PO SCH (20:20)
[2021-08-18] MEDS: diphenhydrAMINE 25 MG CAP PO PRN (20:21)
[2021-08-18] MEDS: Acetaminophen 325 MG TAB PO PRN (20:21)
[2021-08-19] MEDS: Heparin 5,000 UNITS/ML VIAL SC SCH ×2 (08:27→20:31)
[2021-08-19] MEDS: Atorvastatin Calcium 40 MG TAB PO SCH (08:27)
[2021-08-19] MEDS: Sevelamer Carbonate 800 MG TAB PO SCH ×3 (08:27→18:05)
[2021-08-19] MEDS: Amiodarone 200 MG TAB PO SCH ×2 (08:28→20:32)
[2021-08-19] MEDS: Allopurinol 100 MG TAB PO SCH ×2 (08:28→20:31)
[2021-08-19] MEDS: Sildenafil Citrate 20 MG TAB PO SCH ×3 (08:28→20:33)
[2021-08-19] MEDS: Hydroxyurea 500 MG CAP PO SCH (08:28)
[2021-08-19] MEDS: Senokot S 8.6-50 MG TAB PO SCH ×2 (08:29→20:33)
[2021-08-19] MEDS: Polyethylene Glycol 3350 17 GM Packet PO SCH (08:29)
[2021-08-19] MEDS: Torsemide 100 MG TAB PO SCH (08:30)
[2021-08-19] MEDS ORDERED: Heparin 10,000 UNITS/ 10 ML VIAL ONE (09:18)
[2021-08-19] MEDS: EPOETIN ALFA-EPBX (ESRD) 3,000 UNIT/ML VIAL IVP SCH (10:22)
[2021-08-19 14:37] VITALS: BMI 31.4
[2021-08-19] MEDS: rOPINIRole HCl 1 MG TAB PO SCH (20:31)
[2021-08-19] MEDS: Gabapentin 300 MG CAP PO SCH (20:32)
[2021-08-19] MEDS: Cefuroxime Axetil 250 MG TAB PO SCH (20:33)
[2021-08-19] MEDS: Acetaminophen 325 MG TAB PO PRN (22:20)
[2021-08-19] MEDS: diphenhydrAMINE 25 MG CAP PO PRN (22:20)
[2021-08-20 05:32] LABS: Hemoglobin 7.3 g/dL (12.0-16.0); Mean Corpuscular HGB CONC 31.9 g/dL (32.0-36.0); Mean Corpuscular Hemoglobin 33.7 pg (27.0-31.0); Platelet Count 245 thou/uL (130-400); RBC Distribution Width 19.7 % (11.5-14.5); Red Blood Cell (RBC) Count 2.18 mill/uL (4.20-5.40); White Blood Cell (WBC) Count 11.2 thou/uL (4.8-10.8)
[2021-08-20 05:34] LABS: Anion Gap 10 mmol/L (10-20); BUN (Urea Nitrogen) 35 mg/dL (9.8-20.1); Calc. Creatinine Clearance 27 mL/min (70-130); Calcium 7.9 mg/dL (7.8-10.44); Carbon Dioxide 32 mmol/L (23-31); Chloride 102 mmol/L (98-107); Glucose 90 mg/dL (80-115); Potassium 3.6 mmol/L (3.5-5.1); Sodium 140 mmol/L (136-145)
[2021-08-20 06:18] LABS: Band 9 % (5-11); Eosinophils 1 % (0-10); Lymphocytes 6 % (21-51); MDiff Complete? YES; Monocytes 2 % (0-10); Neutrophil 82 % (42-75); Nucleated RBC 1 % (0)
[2021-08-20] MEDS: Allopurinol 100 MG TAB PO SCH (08:23)
[2021-08-20] MEDS: Sildenafil Citrate 20 MG TAB PO SCH (08:23)
[2021-08-20] MEDS: Heparin 5,000 UNITS/ML VIAL SC SCH (08:23)
[2021-08-20] MEDS: Amiodarone 200 MG TAB PO SCH (08:23)
[2021-08-20] MEDS: Atorvastatin Calcium 40 MG TAB PO SCH (08:23)
[2021-08-20] MEDS: Sevelamer Carbonate 800 MG TAB PO SCH ×2 (08:23→11:06)
[2021-08-20] MEDS: Polyethylene Glycol 3350 17 GM Packet PO SCH (08:24)
[2021-08-20] MEDS: Hydroxyurea 500 MG CAP PO SCH (08:24)
[2021-08-20] MEDS: Senokot S 8.6-50 MG TAB PO SCH (08:24)
[2021-08-20] MEDS: Torsemide 100 MG TAB PO SCH (08:25)
[2021-08-20] MEDS ORDERED: Folic Acid/Vit B Comp W-C PO SCH (09:00)
[2021-08-20] MEDS ORDERED: Folic Acid 1 MG TAB PO SCH (09:00)
[2021-08-20] MEDS ORDERED: Cyanocobalamin (Vitamin B-12) 1,000 MCG TAB PO SCH (09:00)
[2021-08-20 11:06] VITALS: TEMP 98.4
[2021-08-20 12:55] VITALS: BP 121/53
[2021-08-21] MEDS ORDERED: Ferrex 150 Plus (iron poly cmplx) PO SCH (09:00)
== END 2021-08-20 14:20 | disposition home health service (06) | DRG 871 ==
LOC: ERS 11:27 → IMCU/EMU 13:23 → 2NO 08-17 13:04
PROVIDERS: ADMIT Internal Medicine; ATTEND Internal Medicine
PROC: 0JH63XZ Insertion of Tunneled Vascular Access Device into Chest Subcutaneous Tissue and Fascia, Percutaneous Approach (ICD-10-PCS; principal; 2021-08-16)
PROC: 02H633Z Insertion of Infusion Device into Right Atrium, Percutaneous Approach (ICD-10-PCS; 2021-08-16)
PROC: B548ZZA Ultrasonography of Superior Vena Cava, Guidance (ICD-10-PCS; 2021-08-16)
DX: A41.50 Gram-negative sepsis, unspecified (principal); I50.33 Acute on chronic diastolic (congestive) heart failure; J96.21 Acute and chronic respiratory failure with hypoxia; Z20.822 Contact with and (suspected) exposure to COVID-19; J15.6 Pneumonia due to other Gram-negative bacteria; J96.22 Acute and chronic respiratory failure with hypercapnia; I13.0 Hypertensive heart and chronic kidney disease with heart failure and stage 1 through stage 4 chronic kidney disease, or unspecified chronic kidney disease; N17.9 Acute kidney failure, unspecified; K92.2 Gastrointestinal hemorrhage, unspecified; N25.81 Secondary hyperparathyroidism of renal origin; R65.20 Severe sepsis without septic shock; D45 Polycythemia vera; E03.9 Hypothyroidism, unspecified; G25.81 Restless legs syndrome; K21.9 Gastro-esophageal reflux disease without esophagitis; D63.1 Anemia in chronic kidney disease; E87.5 Hyperkalemia; D47.3 Essential (hemorrhagic) thrombocythemia; D86.0 Sarcoidosis of lung; I27.21 Secondary pulmonary arterial hypertension; I25.10 Atherosclerotic heart disease of native coronary artery without angina pectoris; N18.32 Chronic kidney disease, stage 3b; I50.810 Right heart failure, unspecified; M10.9 Gout, unspecified; R79.89 Other specified abnormal findings of blood chemistry; E83.39 Other disorders of phosphorus metabolism; I48.0 Paroxysmal atrial fibrillation; I49.5 Sick sinus syndrome; E78.5 Hyperlipidemia, unspecified; K59.00 Constipation, unspecified; Z79.82 Long term (current) use of aspirin; Z79.51 Long term (current) use of inhaled steroids; Z79.52 Long term (current) use of systemic steroids; Z79.899 Other long term (current) drug therapy; Z90.710 Acquired absence of both cervix and uterus; Z90.49 Acquired absence of other specified parts of digestive tract; Z99.81 Dependence on supplemental oxygen; Z86.73 Personal history of transient ischemic attack (TIA), and cerebral infarction without residual deficits; Z88.8 Allergy status to other drugs, medicaments and biological substances; Z91.040 Latex allergy status
CPT/HCPCS: 36415; 36416; 51701; 71045; 76770; 80048; 80053; 80069; 80202; 81003; 81015; 82274; 82306; 82553; 82570; 82728; 82805; 83540; 83550; 83605; 83690; 83735; 83880; 84100; 84145; 84156; 84300; 84484; 84540; 85007; 85025; 85027; 85610; 85730; 86704; 86706; 86803; 87040; 87086; 87340; 90935; 93005; 93010; 93306; 93970; 94640; 94660; 94760; 96365; 96368; 96375; C1751; C1752; G0257; J0282; J0692; J1644; J1650; J1940; J1956; J2060; J2185; J2250; J2405; J2916; J3370; J3490; J7050; J7070; J7620; Q5105; S0020; U0002; U0003; U0005